=== PATIENT | female | born 1960 | race Two or more races ===

== ENCOUNTER 2019-11-15 13:58 | Outpatient (REF) | payer MEDICAID, SELFPAY ==
--- NOTE | 2019-11-15 15:57 | MHC.AU.P13 ---
Adult Audiological Evaluation Date of Visit: 11/15/19 Reason for Appointment: History of mixed hearing loss. Patient arrives today to determine if there has been a change in hearing. Previous Hearing Test Results: Tested on 04/10/2018 at this clinic- Profound rising to moderate mixed hearing loss bilaterally Ear History: Previous Ear Surgery: Left Ear History of Occupational Noise Exposure: No Medical History: Medical History: High Blood Pressure Thyroid Disease Hearing Instrument History- Right Ear: Credentials Specialist: Lumi [place] Model: Mobiliz8-Trunk Archive-Pandabus Serial Number: [id number] Hearing Instrument History- Left Ear: Credentials Specialist: ReSound Model: Mobiliz8-Trunk Archive-Pandabus Serial Number: [id number] Otoscopy: Right Ear: Dull tympanic membrane Left Ear: Dull tympanic membrane Tympanometry: Right Ear: Normal Middle Ear System (Type A) Left Ear: Hypercompliant Middle Ear System (Type Ad) Hearing Evaluation: Transducer(s) Used: Insert Earphones Method: Conventional Audiometry Stimuli Used: Pure Tones Right Ear: Description of Hearing: Severe rising to moderately-severe mixed hearing loss. Left Ear: Description of Hearing: Severe rising to moderate mixed hearing loss. Speech Recognition Threshold (SRT): Method Used: Monitored Live Voice Stimuli Used: Spondee Words Right Ear: 65 dBHL Left Ear: 70 dBHL Word Discrimination: Method: Monitored Live Voice Word Lists Used: NU-6 Right Ear: 80% at 85 dBHL Left Ear: 80% at 90 dBHL Most Comfortable Level (MCL): Right Ear: 85 dBHL Left Ear: 90 dBHL Comparison: Compared to most recent evaluation: Low-mid frequency thresholds have improved slightly. High frequency thresholds have decreased slightly. Recommendations: Recommendations: Audiological re-evaluation in one year. Patient had trialled 2 types of hearing aids at the end of last year/beginning of this year, which were both returned. Trials were unable to continue due to COVID restrictions at the time. Patient is interested in resuming her search for new hearing aids. Options were discussed and impressions were taken. A pair of [employer]on[employer] M50-NW O were ordered. Patient will be contacted to schedule a hearing aid fitting when all materials have arrived. Diagnosis: Primary Diagnosis: H90.6 Mixed Hearing Loss, Bilateral Secondary Diagnosis: N/A Services Performed: Services Performed: Comprehensive Audiological Evaluation (CPT 11899) Tympanometry (CPT 35710) Signature: Student/Clinical Fellow: No I have reviewed/agreed with student/fellow documentation: N/A Provider: Theresa Gutierrez, CCC-A
== END 2019-11-15 13:59 | disposition home or self-care (01) ==
LOC: HO.SH 13:58
PROVIDERS: Visit Provider Internal Medicine
DX: H91.90 Unspecified hearing loss, unspecified ear (principal)
CPT/HCPCS: 92557; 92567

== ENCOUNTER 2019-12-06 14:57 | Outpatient (REF) | payer MEDICAID, SELFPAY | END 2019-12-06 14:58 | disposition home or self-care (01) | LOC: HO.HAP 14:57 | PROVIDERS: PCP Internal Medicine; Referring Provider Internal Medicine; Visit Provider Internal Medicine | DX: Z13.89 Encounter for screening for other disorder (principal) | CPT/HCPCS: 92700 ==

== ENCOUNTER 2019-12-23 11:54 | Outpatient (REF) | payer MEDICAID, SELFPAY | END 2019-12-23 11:55 | disposition home or self-care (01) | LOC: HO.HAP 11:54 | PROVIDERS: PCP Internal Medicine; Referring Provider Internal Medicine; Visit Provider Internal Medicine | DX: Z46.1 Encounter for fitting and adjustment of hearing aid (principal) | CPT/HCPCS: V5011; V5020; V5160; V5260; V5266 ==

== ENCOUNTER 2020-01-13 12:36 | Outpatient (REF) | payer MEDICAID, SELFPAY | END 2020-01-13 12:37 | disposition home or self-care (01) | LOC: HO.HAP 12:36 | PROVIDERS: PCP Internal Medicine; Referring Provider Internal Medicine; Visit Provider Internal Medicine | DX: Z13.89 Encounter for screening for other disorder (principal) | CPT/HCPCS: 92700 ==

== ENCOUNTER 2020-02-11 11:19 | Outpatient (REF) | payer MEDICAID, SELFPAY | END 2020-02-11 11:20 | disposition home or self-care (01) | LOC: HO.HAP 11:19 | PROVIDERS: Visit Provider Internal Medicine | DX: Z13.89 Encounter for screening for other disorder (principal) ==

== ENCOUNTER 2020-02-18 12:49 | Outpatient (REF) | payer MEDICAID, SELFPAY | END 2020-02-18 12:50 | disposition home or self-care (01) | LOC: HO.HAP 12:49 | PROVIDERS: Visit Provider Internal Medicine | DX: Z13.89 Encounter for screening for other disorder (principal) ==

== ENCOUNTER 2020-03-04 15:20 | Outpatient (REF) | payer MEDICAID, SELFPAY | END 2020-03-04 15:21 | disposition home or self-care (01) | LOC: HO.HAP 15:20 | PROVIDERS: Visit Provider Internal Medicine | DX: Z13.89 Encounter for screening for other disorder (principal) ==

== ENCOUNTER 2020-03-27 10:58 | Outpatient (REF) | payer SELFPAY | END 2020-03-27 10:59 | disposition home or self-care (01) | LOC: HO.HAP 10:58 | PROVIDERS: Visit Provider Internal Medicine | DX: Z13.89 Encounter for screening for other disorder (principal) ==

== ENCOUNTER 2020-04-23 09:54 | Outpatient (REF) | payer MEDICAID, SELFPAY | END 2020-04-23 09:55 | disposition home or self-care (01) | LOC: HO.HAP 09:54 | PROVIDERS: Visit Provider Internal Medicine | DX: Z13.89 Encounter for screening for other disorder (principal) ==

== ENCOUNTER 2020-06-30 13:00 | Outpatient (REF) | payer MEDICAID, SELFPAY ==
--- NOTE | 2020-06-30 13:53 | MHC.AU.P13 ---
Hearing Instrument Problem Date of Visit: 06/30/20 Right Ear: Natural Gas Plant Technician: Phonak Model: VIRTO M50-10 NW 0 Serial Number: [id number] Repair Warranty: 01/13/2023 Loss and Damage Warranty: 01/13/2023 Battery Size: 10 Color: [place] Type of Wax Guard: Cerustop Dispensed By: [facility] Date of Fittin12/23/2019 Left Ear: Natural Gas Plant Technician: Phonak Model: VIRTO M50-10 NW 0 Serial Number: [id number] Repair Warranty: 01/13/2023 Loss and Damage Warranty: 01/13/2023 Battery Size: 10 Color: [place] Type of Wax Guard: Cerustop Dispensed By: [facility] Date of Fittin12/23/2019 Follow-Up Summary: Patient brought in right hearing aid with broken battery door and would like volume turned down. Put on new battery door, changed wax guard, and turned down one (3dB) step. Patient was dispensed 42 batteries. Patient will call if any further problems. Recommendations: Recommendations: Hearing instrument follow-up or maintenance as needed. Signature: Provider: VERÓNICA Avila-
== END 2020-06-30 13:01 | disposition home or self-care (01) ==
LOC: HO.HAP 13:00
PROVIDERS: Visit Provider Internal Medicine
DX: Z46.1 Encounter for fitting and adjustment of hearing aid (principal)
CPT/HCPCS: V5266

== ENCOUNTER 2020-12-01 10:58 | Outpatient (REF) | payer MEDICAID, SELFPAY | END 2020-12-01 10:59 | disposition home or self-care (01) | LOC: HO.HAP 10:58 | PROVIDERS: Visit Provider Internal Medicine | DX: Z46.1 Encounter for fitting and adjustment of hearing aid (principal); H90.6 Mixed conductive and sensorineural hearing loss, bilateral | CPT/HCPCS: 92593; V5266 ==

== ENCOUNTER 2021-02-10 09:44 | Outpatient (REF) | payer MEDICAID, SELFPAY ==
--- NOTE | 2021-02-10 10:43 | MHC.AU.FUR ---
Hearing Instrument Follow-Up Date of Visit: 02/10/21 Building Construction Teacher Used: Right Ear: Waiter/Waitress First Class: Phonak Model: [employer] M50-10 NW 0 Serial Number: [id number] Repair Warranty: 01/13/2023 Loss and Damage Warranty: 01/13/2023 Battery Size: 10 Type of Wax Guard: Cerustop Dispensed By: [facility] Date of Fittin12/23/2019 Follow-Up Summary: Patient's brought in the right hearing aid today with the battery door broken. New battery door was placed, instrument tested and visual and biologic check were all good. Will call to apple picking supervisor aid. Recommendations: Recommendations (Other): Use caution when opening battery door; inserting battery. Diagnosis Code(s): Primary Diagnosis: H90.6 Mixed Hearing Loss, Bilateral Services Performed: PICKETT Non-Quantity Charges: HACHECKM (MH>1 yr or new to us) Face to Face appointment Signature: Provider: Lexx Lynne, FAAA
== END 2021-02-10 09:45 | disposition home or self-care (01) ==
LOC: HO.HAP 09:44
PROVIDERS: Visit Provider Internal Medicine
DX: Z46.1 Encounter for fitting and adjustment of hearing aid (principal); H90.6 Mixed conductive and sensorineural hearing loss, bilateral
CPT/HCPCS: 92592; 99499

== ENCOUNTER 2021-04-08 10:34 | Outpatient (REF) | payer MEDICAID, SELFPAY ==
--- NOTE | 2021-04-08 15:30 | MHC.AU.AHA ---
Adult Audiological Evaluation Date of Visit: 04/08/21 Reason for Appointment: Audiological evaluation to monitor the status of Ms. Guillen's hearing loss. She has a known bilateral, mixed hearing loss and uses hearing aids binaurally. She has a history of right stapes surgery. She has deferred further surgery on her ears. She notes that hearing in the left ear seems to have decreased a bit and she feels she needs an adjustment to her hearing aids. She denies any changes to her medical history. Previous Hearing Test Results: [facility] [place], [place]/2019- Severe rising to moderately-severe mixed hearing loss bilaterally. Ear History: Previous Ear Surgery: Right ear stapedectomy History of occupational noise exposure?: No Medical History: Medical History: High Blood Pressure, Thyroid Disease Hearing Instrument History- Right Ear: Retort Furnace Helper: Phonak Model: FeverO M50-10 NW 0 Serial Number: [id number] Battery Size: 10 Repair Warranty: 01/13/2023 Loss and Damage Warranty: 01/13/2023 Dispensed By: [facility] Date of Fittin12/23/2019 Hearing Instrument History- Left Ear: Retort Furnace Helper: Phonak Model: FeverO M50-10 NW 0 Serial Number: [id number] Battery Size: 10 Warranty: 01/13/2023 Loss and Damage Warranty: 01/13/2023 Dispensed By: [facility] Date of Fittin12/23/2019 Otoscopy: Right Ear: Perforation in lower portion of TM. Clear canal. Left Ear: Some redness and retraction of TM. Clear canal. Tympanometry: Tympanometry performed due to: Right Ear: Non-compliant Middle Ear System (Type B), large ECV consistent with TM perforation Left Ear: Hypercompliant Middle Ear System (Type Ad), Double-Peaked Tympanogram Hearing Evaluation: Transducer(s) Used: Insert Earphones, Bone Conduction Method: Conventional Audiometry Stimuli Used: Pure Tones Right Ear: Description of Hearing: Severe rising to moderate mixed hearing loss from 250-8000 Hz. Left Ear: Description of Hearing: Severe mixed hearing loss 250-500 Hz, sloping to a profound mixed hearing loss at 1000 Hz, and rising to a severe to moderate mixed hearing loss 4637-7869 Hz. Speech Recognition Threshold (SRT): Method Used: Monitored Live Voice Stimuli Used: Spondee Words Right Ear: 75 dBHL Left Ear: 75 dBHL Word Discrimination: Method: Recorded Lists Word Lists Used: NU-6 Right Ear: 80% at 95 dBHL Left Ear: 72% at 95 dBHL Comparison: Compared to most recent evaluation: 25 dBHL decrease in hearing at 1000 Hz in the left ear. 20 dBHL improvement in hearing at 8000 Hz in the right ear. All other thresholds remain stable. Recommendations: Audiological re-evaluation in one year. Hearing aid maintenance performed today. Hearing aid(s) reprogrammed with updated test results. Diagnosis: Primary Diagnosis: H90.6 Mixed Hearing Loss, Bilateral Secondary Diagnosis: H69.93 Unspecified Eustachian Tube Dysfunction, Bilateral Services Performed: Comprehensive Audiological Evaluation (CPT 52261) Tympanometry (CPT 53379) Signature: Provider: Theresa Jordan, CCC-A
== END 2021-04-08 10:35 | disposition home or self-care (01) ==
LOC: HO.SH 10:34
PROVIDERS: Visit Provider Internal Medicine
DX: Z01.118 Encounter for examination of ears and hearing with other abnormal findings (principal); H90.6 Mixed conductive and sensorineural hearing loss, bilateral; H69.93 Unspecified Eustachian tube disorder, bilateral
CPT/HCPCS: 92557; 92567; 92593

== ENCOUNTER 2021-10-28 14:55 | Outpatient (REF) | payer MEDICAID, SELFPAY | END 2021-10-28 14:56 | disposition home or self-care (01) | LOC: HO.HAP 14:55 | PROVIDERS: Visit Provider Internal Medicine | DX: Z46.1 Encounter for fitting and adjustment of hearing aid (principal); H69.93 Unspecified Eustachian tube disorder, bilateral | CPT/HCPCS: V5266 ==

== ENCOUNTER 2021-11-01 15:34 | Outpatient (REF) | payer MEDICAID, SELFPAY ==
--- NOTE | ~2021-11-01 | XR_ITS ---
EXAMINATION: XR CHEST CLINICAL INFORMATION: Shortness of breath. COMPARISON: Chest radiograph 01/10/2017 TECHNIQUE: 2 views of the chest were obtained. FINDINGS: There is mild coarsening bronchiolar markings without lobar or segmental airspace consolidation, hyperinflation, or groundglass opacity. There is no pleural reaction or effusion. The vascularity is normal. The costophrenic sulci are clear. The hilar and mediastinal contours and bony structures are unremarkable. XR/XR chest 2V IMPRESSION: -Mild coarsening bronchiolar markings. -No hyperinflation, infiltrate, or effusion.
== END 2021-11-01 15:35 | disposition home or self-care (01) ==
LOC: HO.XRAY 15:34
PROVIDERS: PCP Internal Medicine; Visit Provider Internal Medicine
DX: R06.02 Shortness of breath (principal)
CPT/HCPCS: 71046

== ENCOUNTER 2021-11-16 10:08 | Outpatient (REF) | payer MEDICAID, SELFPAY ==
[2021-11-16 10:24] LABS: MANUAL DIFF FLAG NO
[2021-11-16 11:39] LABS: Basophils Absolute Auto 0.1 X10*3/uL (0.0-0.2); Basophils Percent Auto 0.8 % (0-2); Eosinophils Absolute Auto 0.7 X10*3/uL (0.0-0.4); Eosinophils Percent Auto 7.3 % (0-4); Hematocrit 42.3 % (37.0-47.0); Hemoglobin 13.5 g/dl (12.0-16.0); Imm Gran Abs Auto 0.03 X10*3/uL (0.00-0.03); Imm Gran Pct Auto 0.3 % (0.0-0.4); Lymphocytes Absolute Auto 3.3 X10*3/uL (1.2-4.9); Lymphocytes Percent Auto 33.6 % (20-40); Mean Corpuscular HGB Conc 31.9 g/dl (31.0-35.0); Mean Corpuscular Hemoglobin 27.3 pg (27.0-33.0); Mean Corpuscular Volume 85.6 fL (80.0-98.0); Mean Platelet Volume 9.3 fL (9.4-12.3); Monocytes Absolute Auto 0.8 X10*3/uL (0.1-1.2); Monocytes Percent Auto 8.6 % (2-11); Neutrophils Absolute Auto 4.8 x10*3/uL (2.0-8.3); Neutrophils Percent Auto 49.4 % (45-73); Platelet Count 331 X10*3/uL (160-400); Red Blood Count 4.94 X10*6/uL (4.20-5.50); Red Cell Distribution Width 14.2 % (11.0-16.0); White Blood Count 9.8 X10*3/uL (4.8-10.8)
[2021-11-16 12:26] LABS: Thyroid Stimulating Hormone 1.05 uIU/mL (0.32-4.0)
[2021-11-16 12:27] LABS: Alanine Aminotransferase 19 U/L (0-31); Alkaline Phosphatase 92 U/L (39-117); Anion Gap 17 (12-20); Aspartate Amino Transferase 18 U/L (5-31); Bilirubin Total 0.4 mg/dL (0.0-1.0); Blood Urea Nitrogen 20 mg/dL (9-16); Carbon Dioxide 23 mmol/L (22-29); Chloride 106 mmol/L (96-108); Cholesterol 204 mg/dL; Estimated Glomerular Filt Rate > 60; Glucose Random 97 mg/dL (60-115); HDL Cholesterol 41 mg/dL; LDL Cholesterol Calculated 136 mg/dl; Potassium 4.3 mmol/L (3.3-5.1); Sodium 142 mmol/L (135-145); Total Protein 6.9 g/dL (6.5-8.0); Triglycerides 139 mg/dL
== END 2021-11-16 10:09 | disposition home or self-care (01) ==
LOC: HO.LAB 10:08
PROVIDERS: PCP Internal Medicine; Visit Provider Internal Medicine
DX: E03.9 Hypothyroidism, unspecified (principal); I10 Essential (primary) hypertension; J45.20 Mild intermittent asthma, uncomplicated
CPT/HCPCS: 36415; 80053; 80061; 84443; 85025

== ENCOUNTER 2021-11-30 10:49 | Outpatient (REF) | payer MEDICAID, SELFPAY | END 2021-11-30 10:50 | disposition home or self-care (01) | LOC: HO.HAP 10:49 | PROVIDERS: Visit Provider Internal Medicine | DX: Z13.89 Encounter for screening for other disorder (principal) ==

== ENCOUNTER 2021-12-16 15:15 | Outpatient (REF) | payer MEDICAID, SELFPAY ==
--- NOTE | 2021-12-16 16:12 | MHC.AU.HFU ---
Hearing Instrument Follow-Up- Binaural Date of Visit: 12/16/21 Right Ear: Phonak Virto M50-10 NW O SN: [id number] Color: [place] Repair Warranty: 03/14/2023 Loss and Damage Warranty: Used 12/13/21 Service Plan: 12/22/2020 Battery Size: 10 Type of Wax Guard: Cerustop Dispensed By: [facility] Date of Fittin12/23/2019 Left Ear: Phonak Virto M50-10 NW O SN: [id number] Color: [place] Repair Warranty: 03/14/2023 Loss and Damage Warranty: Used 12/13/21 Service Plan: 12/22/2020 Battery Size: 10 Type of Wax Guard: Cerustop Dispensed By: [facility] Date of Fittin12/23/2019 Follow-Up Summary: Po returned to chicken picker her lost and damage replacement hearing aids. Initially, she reported a noise/beeping in the replacement hearing aids. Performed feedback client operations manager and the issue reportedly resolved. Increased overall volume of left hearing aid slightly at oP's request. Briefly discussed that hearing aids are almost maxed out and for more power would need a different style of hearing aid. Po prefers the smaller hearing aid. She also has a pair of old ReSound CICs that she reportedly received from [facility]. Recommendations: Hearing instrument maintenance in 6 months, or sooner if needed. Please contact our clinic with any questions or concerns. Diagnosis Code(s): Primary Diagnosis: H90.6 Mixed Hearing Loss, Bilateral Secondary Diagnosis: H69.93 Unspecified Eustachian Tube Dysfunction, Bilateral Signature: Provider: Katheryn Leon, [facility]
== END 2021-12-16 15:16 | disposition home or self-care (01) ==
LOC: HO.HAP 15:15
PROVIDERS: Visit Provider Internal Medicine
DX: Z13.89 Encounter for screening for other disorder (principal)

== ENCOUNTER 2021-12-29 12:09 | Outpatient (REF) | payer MEDICAID, SELFPAY ==
[2021-12-29 13:07] LABS: COVID-19 Test Negative (Negative); IDNOW Serial# 55D5AD1C
== END 2021-12-29 12:10 | disposition home or self-care (01) ==
LOC: HO.LAB 12:09
PROVIDERS: Visit Provider Internal Medicine
DX: Z20.822 Contact with and (suspected) exposure to COVID-19 (principal)
CPT/HCPCS: 87635; C9803

== ENCOUNTER 2022-01-03 14:14 | Outpatient (REF) | payer MEDICAID, SELFPAY ==
--- NOTE | 2022-01-03 15:31 | MHC.AU.HFU ---
Hearing Instrument Follow-Up- Binaural Date of Visit: 01/03/22 Right Ear: Phonak Virto M50-10 NW O SN: [id number] Color: [place] Repair Warranty: 03/14/2023 Loss and Damage Warranty: USED 12/13/21 Service Plan: 12/22/2020 Battery Size: 10 Type of Wax Guard: Cerustop Dispensed By: [facility] Date of Fittin12/23/2019 Left Ear: Phonak Virto M50-10 NW O SN: [id number] Color: [place] Repair Warranty: 03/14/2023 Loss and Damage Warranty: USED 12/13/21 Service Plan: 12/22/2020 Battery Size: 10 Type of Wax Guard: Cerustop Dispensed By: [facility] Date of Fittin12/23/2019 Follow-Up Summary: Po reported that she needs the volume increased on both hearing aids. Increased the overall volume, bilaterally. Po noticed improvement in-office. Reexplained that hearing aids are almost maxed out and the trade off between audibility and a smaller hearing aid. Po reported that she has tried larger hearing aids in the past but had issues with discomfort. Data logging showed <1 hour of use per day. Encouraged more consistent use. Recommendations: Hearing instrument maintenance in 6 months, or sooner if needed. Patient will call if problems persist. Diagnosis Code(s):Primary Diagnosis: H90.6 Mixed Hearing Loss, Bilateral Secondary Diagnosis: H69.93 Unspecified Eustachian Tube Dysfunction, Bilateral Signature: Provider: Katheryn Leon, [facility]
== END 2022-01-03 14:15 | disposition home or self-care (01) ==
LOC: HO.HAP 14:14
PROVIDERS: Visit Provider Internal Medicine
DX: Z46.1 Encounter for fitting and adjustment of hearing aid (principal); H90.6 Mixed conductive and sensorineural hearing loss, bilateral
CPT/HCPCS: 92593

== ENCOUNTER 2022-01-11 11:32 | Outpatient (REF) | payer MEDICAID, SELFPAY ==
--- NOTE | 2022-01-12 09:16 | MHC.AU.HFU ---
Hearing Instrument Follow-Up- Binaural Date of Visit: 01/11/22 Right Ear: Daryl Sams M50-10 NW O SN: [id number] Color: [place] Repair Warranty: 03/14/2023 Loss and Damage Warranty: USED 12/13/21 Service Plan: 12/22/2020 Battery Size: 10 Type of Wax Guard: Cerustop Dispensed By: [facility] Date of Fittin12/23/2019 Left Ear: Daryl Iqbalo M50-10 NW O SN: [id number] Color: [place] Repair Warranty: 03/14/2023 Loss and Damage Warranty: USED 12/13/21 Service Plan: 12/22/2020 Battery Size: 10 Type of Wax Guard: Cerustop Dispensed By: [facility] Date of Fittin12/23/2019 Follow-Up Summary: Po reported her hearing aids still sound too soft. She wanted the settings she had prior to losing her hearing aids. Restored the settings from March 2021; however, there was excessive feedback. Performed feedback manager of selection and assessment, which decreased the gain significantly. Reinserted hearing aids and performed feedback manager of selection and assessment again with no improvement multiple times. Hearing aid settings are currently maxed out due to feedback curve. The hearing aid settings from March cannot be restored due to apparent changes in feedback pathway. Possible that Daryl used original impressions from initial hearing aid order versus the impressions for remakes from February 2020. Discussed possible remakes for tighter fit. Po is leaving for [facility] at the beginning of January. When she returns, if there are still issues with sound quality due to affects of the feedback curves, she will schedule an appointment for impressions. Recommendations: Po will schedule an appointment when she returns from [facility] for new impressions for remakes, if necessary. Diagnosis Code(s): Primary Diagnosis: H90.6 Mixed Hearing Loss, Bilateral; Secondary Diagnosis: H69.93 Unspecified Eustachian Tube Dysfunction, Bilateral Signature: Provider: Katheryn Leon, [facility]
== END 2022-01-11 11:33 | disposition home or self-care (01) ==
LOC: HO.HAP 11:32
PROVIDERS: Visit Provider Internal Medicine
DX: Z13.89 Encounter for screening for other disorder (principal)

== ENCOUNTER 2022-04-22 10:41 | Outpatient (REF) | payer MEDICAID, SELFPAY ==
[2022-04-22 13:11] LABS: Alanine Aminotransferase 18 U/L (0-31); Albumin Level 4.1 g/dL (3.5-5.0); Alkaline Phosphatase 85 U/L (39-117); Anion Gap 14 (12-20); Aspartate Amino Transferase 20 U/L (5-31); Bilirubin Total 0.5 mg/dL (0.0-1.0); Blood Urea Nitrogen 16 mg/dL (9-16); Calcium 9.8 mg/dL (8.4-10.2); Carbon Dioxide 26 mmol/L (22-29); Chloride 105 mmol/L (96-108); Cholesterol 127 mg/dL; Estimated Glomerular Filt Rate > 60; Glucose Random 95 mg/dL (60-115); HDL Cholesterol 42 mg/dL; LDL Cholesterol Calculated 71 mg/dl; Potassium 4.2 mmol/L (3.3-5.1); Sodium 141 mmol/L (135-145); Thyroid Stimulating Hormone 0.78 uIU/mL (0.32-4.0); Total Protein 6.7 g/dL (6.5-8.0); Triglycerides 71 mg/dL
== END 2022-04-22 10:42 | disposition home or self-care (01) ==
LOC: HO.LAB 10:41
PROVIDERS: PCP Internal Medicine; Visit Provider Internal Medicine
DX: Z00.00 Encounter for general adult medical examination without abnormal findings (principal); I10 Essential (primary) hypertension; R21 Rash and other nonspecific skin eruption; E78.00 Pure hypercholesterolemia, unspecified; E03.9 Hypothyroidism, unspecified
CPT/HCPCS: 36415; 80053; 80061; 84443

== ENCOUNTER 2022-05-03 15:24 | Outpatient (REF) | payer MEDICAID, SELFPAY ==
--- NOTE | 2022-05-04 10:00 | MHC.AU.HA3 ---
Hearing Instrument Follow-Up- Binaural Date of Visit: 05/03/22 Right Ear: Make, Model, Color, Serial Number: Phonak Faridao M50-10 NW O SN: [id number] Color: [place] Grocery Specialist Repair Warranty: 03/14/2023 Grocery Specialist Loss and Damage Warranty: USED 12/13/21 [facility] Service Plan: 12/22/2020 Battery Size: 10 Type of Wax Guard: Cerustop Dispensed By: [facility] Date of Fittin12/23/2019 Left Ear: Make, Model, Color, Serial Number: Phonak Faridao M50-10 NW O SN: [id number] Color: [place] Grocery Specialist Repair Warranty: 03/14/2023 Grocery Specialist Loss and Damage Warranty: USED 12/13/21 [facility] Service Plan: 12/22/2020 Battery Size: 10 Type of Wax Guard: Cerustop Dispensed By: [facility] Date of Fittin12/23/2019 Follow-Up Summary: Po returned to have her hearing aids re-cased with new impressions as discussed at the last appointment. Impressions taken, bilaterally, without incident. Sent impressions and both hearing aids to [facility] to be re-cased due to significant changes in feedback curves after hearing aids were replaced through the loss and damage warranty. Recommendations: Patient will be contacted when materials have arrived. Recommendations (Other): When hearing aids return, need to restore settings from March 2021 per Po's preference and perform feedback outlet manager. Diagnosis Code(s): Primary Diagnosis: H90.6 Mixed Hearing Loss, Bilateral Signature: Provider: Katheryn Leon, [facility]
== END 2022-05-03 15:25 | disposition home or self-care (01) ==
LOC: HO.HAP 15:24
PROVIDERS: PCP Internal Medicine; Visit Provider Internal Medicine
DX: Z13.89 Encounter for screening for other disorder (principal)

== ENCOUNTER 2022-05-03 15:52 | Outpatient (REF) | payer MEDICAID, SELFPAY | END 2022-05-03 15:53 | disposition home or self-care (01) | LOC: HO.HAP 15:52 | PROVIDERS: Visit Provider Internal Medicine | DX: Z46.1 Encounter for fitting and adjustment of hearing aid (principal); H90.3 Sensorineural hearing loss, bilateral | CPT/HCPCS: V5266 ==

== ENCOUNTER 2022-05-20 11:11 | Outpatient (REF) | payer MEDICAID, SELFPAY | END 2022-05-20 11:12 | disposition home or self-care (01) | LOC: HO.HAP 11:11 | PROVIDERS: Visit Provider Internal Medicine | DX: Z13.89 Encounter for screening for other disorder (principal) ==

== ENCOUNTER 2022-06-01 11:10 | Outpatient (REF) | payer MEDICAID, SELFPAY ==
--- NOTE | 2022-06-01 11:56 | MHC.AU.HA3 ---
Hearing Instrument Follow-Up- Binaural Date of Visit: 06/01/22 Right Ear: Make, Model, Color, Serial Number: Daryl Sams M50-10 NW O SN: [id number] Color: [place] Sound Assistant Repair Warranty: 03/14/2023 Sound Assistant Loss and Damage Warranty: USED 12/13/21 [facility] Service Plan: 12/22/2020 Battery Size: 10 Type of Wax Guard: Cerustop Dispensed By: [facility] Date of Fittin12/23/2019 Left Ear: Make, Model, Color, Serial Number: Daryl Sams M50-10 NW O SN: [id number] Color: [place] Sound Assistant Repair Warranty: 03/14/2023 Sound Assistant Loss and Damage Warranty: USED 12/13/21 [facility] Service Plan: 12/22/2020 Battery Size: 10 Type of Wax Guard: Cerustop Dispensed By: [facility] Date of Fittin12/23/2019 Follow-Up Summary: The patient walked in today asking to be seen for a hearing aid adjustment. I was able to see the patient for programming. She would like the left hearing aid volume increased and the right hearing aid volume increased only slightly. Connected hearing aids to target via cables and increased left overall gain by 3 clicks and right overall gain by 1 click. She seemed happy with this adjustment. I next spent time discussing the patient's hearing loss. Recommending updated audiogram as previous audiogram is dated 04/08/21. I explained that the patient's current [facility] hearing aids are at their maximum gain and are not appropriate for her degree of hearing loss. I explained that her hearing loss needs will be better met with power HS/FS ITE or BTE style hearing aids. She is very concerned about cosmetic appearance of the hearing aids. I explained that her hearing loss needs and appropriate gain must come first. I also explained that these other style hearing aids will give her the ability to use a volume control (either on the aids themselves or via [employer] susannah). This should be further discussed at her next hearing evaluation. For now she is satisfied with the current hearing aid settings and understands there is not much more gain we can provide via programming adjustments. She will request an order for audiogram from her PCP. Diagnosis Code(s): Primary Diagnosis: H90.6 Mixed Hearing Loss, Bilateral Signature: Provider: Theresa Li, CCC-A
== END 2022-06-01 11:11 | disposition home or self-care (01) ==
LOC: HO.HAP 11:10
PROVIDERS: Visit Provider Internal Medicine
DX: Z13.89 Encounter for screening for other disorder (principal)

== ENCOUNTER 2022-06-01 12:03 | Outpatient (REF) | payer MEDICAID, SELFPAY ==
[2022-06-01 12:27] LABS: MANUAL DIFF FLAG NO
[2022-06-01 13:04] LABS: Basophils Absolute Auto 0.1 X10*3/uL (0.0-0.2); Basophils Percent Auto 1.1 % (0-2); Eosinophils Absolute Auto 0.6 X10*3/uL (0.0-0.4); Eosinophils Percent Auto 6.3 % (0-4); Hematocrit 41.4 % (37.0-47.0); Hemoglobin 13.2 g/dl (12.0-16.0); Imm Gran Abs Auto 0.02 X10*3/uL (0.00-0.03); Imm Gran Pct Auto 0.2 % (0.0-0.4); Lymphocytes Percent Auto 43.4 % (20-40); Mean Corpuscular HGB Conc 31.9 g/dl (31.0-35.0); Mean Corpuscular Hemoglobin 27.2 pg (27.0-33.0); Mean Corpuscular Volume 85.2 fL (80.0-98.0); Mean Platelet Volume 10.3 fL (9.4-12.3); Monocytes Absolute Auto 0.5 X10*3/uL (0.1-1.2); Monocytes Percent Auto 5.8 % (2-11); Neutrophils Percent Auto 43.2 % (45-73); Platelet Count 339 X10*3/uL (160-400); Red Blood Count 4.86 X10*6/uL (4.20-5.50); Red Cell Distribution Width 13.2 % (11.0-16.0); White Blood Count 9.2 X10*3/uL (4.8-10.8)
[2022-06-01 13:39] LABS: Alanine Aminotransferase 23 U/L (0-31); Albumin Level 4.2 g/dL (3.5-5.0); Alkaline Phosphatase 83 U/L (39-117); Anion Gap 10 (12-20); Aspartate Amino Transferase 19 U/L (5-31); Bilirubin Total 0.4 mg/dL (0.0-1.0); Blood Urea Nitrogen 15 mg/dL (9-16); Calcium 9.9 mg/dL (8.4-10.2); Carbon Dioxide 29 mmol/L (22-29); Chloride 105 mmol/L (96-108); Cholesterol 148 mg/dL; Estimated Glomerular Filt Rate > 60; Glucose Random 85 mg/dL (60-115); HDL Cholesterol 43 mg/dL; LDL Cholesterol Calculated 86 mg/dl; Potassium 4.2 mmol/L (3.3-5.1); Sodium 140 mmol/L (135-145); Total Protein 6.8 g/dL (6.5-8.0); Triglycerides 95 mg/dL
[2022-06-01 13:53] LABS: Thyroid Stimulating Hormone 0.53 uIU/mL (0.32-4.0)
[2022-06-03 16:49] LABS: TS Negative Control Passed; TS Panel A 8; TS Panel B 7; TS Positive Control Passed; TSpotTB Positive (Negative)
== END 2022-06-01 12:04 | disposition home or self-care (01) ==
LOC: HO.LAB 12:03
PROVIDERS: PCP Internal Medicine; Visit Provider Internal Medicine
DX: E03.8 Other specified hypothyroidism (principal); E78.00 Pure hypercholesterolemia, unspecified; I10 Essential (primary) hypertension; M79.10 Myalgia, unspecified site
CPT/HCPCS: 36415; 80053; 80061; 84443; 85025; 86481

== ENCOUNTER 2022-06-07 14:48 | Outpatient (REF) | payer MEDICAID, SELFPAY ==
--- NOTE | ~2022-06-07 | XR_ITS ---
EXAMINATION: XR CHEST CLINICAL INFORMATION: + T spot test. COMPARISON: Chest radiographs 11/01/2021, 01/10/2017 TECHNIQUE: 2 views of the chest were obtained. FINDINGS: There is mild coarsening of the bronchovascular markings similar to prior studies. Heart is within limits of normal size. The hilar and mediastinal contours are stable. There is no lobar segmental airspace consolidation or groundglass opacity cavitary lesion or pleural reaction. The costophrenic sulci are clear. No acute bony abnormality. XR/XR chest 2V IMPRESSION: - Mild coarsening bronchovascular markings similar to prior studies. -No acute intrathoracic disease.
[2022-06-09 20:43] LABS: TS Negative Control Passed; TS Panel A 3; TS Panel B 0; TS Positive Control Passed; TSpotTB Negative (Negative)
== END 2022-06-07 14:49 | disposition home or self-care (01) ==
LOC: HO.LAB 14:48
PROVIDERS: PCP Internal Medicine; Visit Provider Internal Medicine
DX: R76.11 Nonspecific reaction to tuberculin skin test without active tuberculosis (principal)
CPT/HCPCS: 36415; 71046; 86481

== ENCOUNTER 2022-08-02 14:38 | Outpatient (REF) | payer MEDICAID, SELFPAY ==
[2022-08-04 15:28] LABS: TS Negative Control Passed; TS Panel A 4; TS Panel B 15; TS Positive Control Passed; TSpotTB Positive (Negative)
== END 2022-08-02 14:39 | disposition home or self-care (01) ==
LOC: HO.LAB 14:38
PROVIDERS: PCP Internal Medicine; Visit Provider Internal Medicine
DX: Z11.1 Encounter for screening for respiratory tuberculosis (principal)
CPT/HCPCS: 36415; 86481

== ENCOUNTER 2023-01-17 10:27 | Outpatient (REF) | payer OTHER, SELFPAY ==
[2023-01-17 10:47] LABS: MANUAL DIFF FLAG NO
[2023-01-17 11:34] LABS: Basophils Absolute Auto 0.1 X10*3/uL (0.0-0.2); Basophils Percent Auto 0.8 % (0-2); Eosinophils Absolute Auto 0.5 X10*3/uL (0.0-0.4); Eosinophils Percent Auto 5.3 % (0-4); Hematocrit 42.1 % (37.0-47.0); Hemoglobin 13.3 g/dl (12.0-16.0); Imm Gran Abs Auto 0.06 X10*3/uL (0.00-0.03); Imm Gran Pct Auto 0.7 % (0.0-0.4); Lymphocytes Absolute Auto 3.1 X10*3/uL (1.2-4.9); Mean Corpuscular HGB Conc 31.6 g/dl (31.0-35.0); Mean Corpuscular Hemoglobin 26.9 pg (27.0-33.0); Mean Corpuscular Volume 85.1 fL (80.0-98.0); Mean Platelet Volume 9.7 fL (9.4-12.3); Monocytes Absolute Auto 0.5 X10*3/uL (0.1-1.2); Neutrophils Absolute Auto 4.8 x10*3/uL (2.0-8.3); Neutrophils Percent Auto 53.2 % (45-73); Platelet Count 314 X10*3/uL (160-400); Red Blood Count 4.95 X10*6/uL (4.20-5.50); Red Cell Distribution Width 13.1 % (11.0-16.0)
[2023-01-17 12:50] LABS: Alanine Aminotransferase 18 U/L (0-31); Albumin Level 4.1 g/dL (3.5-5.0); Alkaline Phosphatase 95 U/L (39-117); Anion Gap 12 (12-20); Aspartate Amino Transferase 17 U/L (5-31); Bilirubin Total 0.4 mg/dL (0.0-1.0); Blood Urea Nitrogen 15 mg/dL (9-16); Calcium 9.2 mg/dL (8.4-10.2); Carbon Dioxide 27 mmol/L (22-29); Chloride 108 mmol/L (96-108); Cholesterol 115 mg/dL (<200); Estimated Glomerular Filt Rate > 60; Glucose Random 99 mg/dL (60-115); HDL Cholesterol 40 mg/dL (>40); LDL Cholesterol Calculated 64 mg/dL (<100); Sodium 143 mmol/L (135-145); Thyroid Stimulating Hormone 1.45 uIU/mL (0.32-4.0); Total Protein 7.2 g/dL (6.5-8.0); Triglycerides 58 mg/dL (<150)
== END 2023-01-17 10:28 | disposition home or self-care (01) ==
LOC: HO.LAB 10:27
PROVIDERS: PCP Internal Medicine; Visit Provider Internal Medicine
DX: E03.8 Other specified hypothyroidism (principal); E78.00 Pure hypercholesterolemia, unspecified; I10 Essential (primary) hypertension; M79.10 Myalgia, unspecified site
CPT/HCPCS: 36415; 80053; 80061; 84443; 85025

== ENCOUNTER 2023-05-30 14:18 | Outpatient (REF) | payer OTHER, SELFPAY ==
--- NOTE | ~2023-05-30 | XR_ITS ---
EXAMINATION: XR ANKLE, LEFT CLINICAL INFORMATION: Osteoarthritis. COMPARISON: None available. TECHNIQUE: AP, lateral, and mortise views of the left ankle. FINDINGS: Radiopaque marker placed by technologist to indicate the area of concern as indicated by the patient along the medial aspect of the ankle. Small ossicle overlying the inferior aspect of the medial malleolus could represent an avulsion fracture of indeterminate age. Degenerative change with hypertrophic change along the inferior aspect of the medial malleolus. Diffuse soft tissue swelling most marked at the medial aspect of the ankle. Joint effusion present. Small plantar calcaneal spur. Spurring and calcification along the region of the Achilles tendon insertion into the dorsal aspect of the calcaneus. Bones are diffusely demineralized. Ankle mortise is preserved. XR/XR ankle LT min 3V IMPRESSION: 1. Marked medial soft tissue swelling with joint effusion. Small ossicle overlying the inferior medial malleolus of indeterminate age, possibly representing an avulsion fracture. 2. Spurring along medial malleolus.
== END 2023-05-30 14:19 | disposition home or self-care (01) ==
LOC: HO.XRAY 14:18
PROVIDERS: PCP Internal Medicine; Visit Provider Internal Medicine
DX: M19.072 Primary osteoarthritis, left ankle and foot (principal)
CPT/HCPCS: 73610

== ENCOUNTER 2023-07-04 10:12 | Outpatient (REF) | payer SELFPAY | END 2023-07-04 10:13 | disposition home or self-care (01) | LOC: HO.HAP 10:12 | PROVIDERS: Visit Provider Internal Medicine | DX: Z13.89 Encounter for screening for other disorder (principal) ==

== ENCOUNTER 2023-07-05 13:15 | Outpatient (REF) | payer SELFPAY | END 2023-07-05 13:16 | disposition home or self-care (01) | LOC: HO.HAP 13:15 | PROVIDERS: Visit Provider Internal Medicine | DX: Z46.1 Encounter for fitting and adjustment of hearing aid (principal); H90.6 Mixed conductive and sensorineural hearing loss, bilateral | CPT/HCPCS: 92593 ==

== ENCOUNTER 2023-08-21 12:51 | Outpatient (AMB) | payer OTHER, SELFPAY ==
[2023-08-21 13:10] VITALS: BMI 26.5
--- NOTE | 2023-08-21 13:10 | A.OFFVIS_ITS ---
Vital Signs 08/21/23 13:10 Height 4 ft 11 in Weight 131 lb BMI 26.5 Intake Visit Reasons: New Patient, L leg pain denies injury Intake Note: Po is a 63 yr old female who presents today as a new pt for LT leg pain. Pt reports no injury but it has bothering her since February 2023. She is experiencing a sharp pain and swelling from the LT ankle down to her toes. She is taking Tylenol and Naproxen to manage the pain. Allergies No Known Allergies Allergy (Unverified 08/21/23 13:12) Medication List - Last Reconciled 08/21/23 by Troy Chávez PA-C levothyroxine 75 mcg PO DAILY montelukast 10 mg PO DAILY naproxen 500 mg PO BID rifampin 300 mg PO BID rosuvastatin 5 mg PO DAILY HPI HPI New Patient, L leg pain denies injury: Details: 63-year-old female who presents to the office today for an evaluation of left leg for about 7 months. She states she has a sharp pain and swelling in her left ankle that radiates down to her toes. She has not had any injury in the past. She takes Tylenol and naproxen for her pain with benefits. Review of Systems Const All systems reviewed & are unremarkable except as noted in HPI and below Physical Exam Vital Signs: BMI result Body Mass Index 26.5 Const General: cooperative, healthy appearing, comfortable, no acute distress, well developed and alert Orientation/consciousness: patient oriented x3 HEENT Head: Yes normal to inspection, Yes normocephalic and Yes atraumatic Eyes General: appearance normal, both eyes and all related structures Resp Effort & Inspection: normal respiratory effort and able to speak in complete sentences Cardio Rate: regular rate Peripheral pulses: Peripheral pulses 2+ throughout GI Palpation (GI): Soft to palpation Skin Lesions: no lesions Rashes: no rashes Neuro General: patient oriented x3 Extrem Other: Left ankle: Normal to inspection. She has swelling over the medial aspect of her ankle with mild tenderness. No tenderness over lateral malleolus or posterior aspect of her ankle. She has good ankle ROM with no crepitus or laxity. NVI. Results Reviewed Results Reviewed: XR ankle LT min 3V 05/30/23 IMPRESSION: 1. Marked medial soft tissue swelling with joint effusion. Small ossicle overlying the inferior medial malleolus of indeterminate age, possibly representing an avulsion fracture. 2. Spurring along medial malleolus. Assessment & Plan Assessment & Plan (1) Osteoarthritis of right ankle and foot: Code(s): M19.071 - Primary osteoarthritis, right ankle and foot Category: Medical Plan She was given a lace up ankle brace to help her with support when she is on her feet. She does have a prescription of naproxen that she will take for the next 2 weeks to help with her discomfort. A course of physical therapy was also placed to work on ROM, gentle strengthening and proprioceptive training. If symptoms persist or worsen, patient will contact the office, otherwise follow-up as needed. Orders: Orders PT Evaluation and Treatment Today M19.071 - Primary osteoarthritis, right ankle and foot Patient Instructions: Scribed for Troy Chávez PA-C, by Marko Galvez medical laboratory technician, on 08/21/2023 at 1:15 PM EST.? I, Troy Chávez PA-C, have personally reviewed and agree with the information entered by the scribe. Coding Level of Care Code New Pt Level 3 (07503) Diagnoses Osteoarthritis of right ankle and foot M19.071
== END 2023-08-21 13:57 | disposition home or self-care (01) ==
PROVIDERS: PCP Internal Medicine; Visit Provider Physician Assistant
DX: M19.071 Primary osteoarthritis, right ankle and foot (principal)
CPT/HCPCS: 99203

== ENCOUNTER → 2023-08-21 12:51 | Outpatient (BNVA) | payer OTHER, SELFPAY | PROVIDERS: PCP Internal Medicine; Visit Provider Physician Assistant | DX: M19.071 Primary osteoarthritis, right ankle and foot (principal) | CPT/HCPCS: 99202 ==

== ENCOUNTER 2023-08-23 09:28 | Outpatient (REF) | payer OTHER, SELFPAY ==
[2023-08-23 11:08] LABS: Alanine Aminotransferase 17 U/L (0-31); Albumin Level 4.3 g/dL (3.5-5.0); Alkaline Phosphatase 95 U/L (39-117); Anion Gap 11 (12-20); Aspartate Amino Transferase 16 U/L (5-31); Bilirubin Total 0.5 mg/dL (0.0-1.0); Blood Urea Nitrogen 15 mg/dL (9-16); Calcium 9.6 mg/dL (8.4-10.2); Carbon Dioxide 27 mmol/L (22-29); Chloride 106 mmol/L (96-108); Estimated Glomerular Filt Rate > 60; Glucose Random 116 mg/dL (60-115); Potassium 3.8 mmol/L (3.3-5.1); Sodium 140 mmol/L (135-145); Thyroid Stimulating Hormone 1.38 uIU/mL (0.32-4.0); Total Protein 7.6 g/dL (6.5-8.0)
[2023-08-23 11:19] LABS: Estimated Average Glucose 123 mg/dL; Hemoglobin A1c % 5.9 % (<6.0)
== END 2023-08-23 09:29 | disposition home or self-care (01) ==
LOC: HO.LAB 09:28
PROVIDERS: PCP Internal Medicine; Visit Provider Internal Medicine
DX: E03.9 Hypothyroidism, unspecified (principal); H92.01 Otalgia, right ear; I10 Essential (primary) hypertension; R73.01 Impaired fasting glucose
CPT/HCPCS: 36415; 80053; 83036; 84443

== ENCOUNTER 2023-08-30 09:17 | Day surgery (SDC) | payer OTHER, SELFPAY ==
[2023-08-28 13:19] VITALS: BMI 28.8
[2023-08-30 10:00] VITALS: BMI 28.6
[2023-08-30 10:15] VITALS: BP 134/74; PULSE 64; RESP 16; TEMP 36.7; O2SAT 100
[2023-08-30] MEDS: Lactated Ringers 1,000 ML 100 ML IVCONT (10:27)
--- NOTE | 2023-08-30 10:45 | HO.ANESPROP2 ---
Documented by User: Lauryn Sykes NP 08/29/23 10:21 HPI - Anesthesia Eval Consult details Narrative: 63yo F for Colonoscopy PMFSH Active Problems Active Problems: All Active Problems Osteoarthritis of right ankle and foot (Acute) Past Medical History Medical History Personal history of tuberculosis Thyroid disease Asthma Hyperlipidemia HTN (hypertension) Surgical History Surgical History History of ear surgery Hx of hemorrhoidectomy Hx of hysterectomy History of section H/O colonoscopy Social History Social History Patient Tobacco Use Status: Never used Tobacco Use of substances other than those prescribed or required for medical reasons: No Are you DNR?: No Advance Directives: No Advance Directives Information Provided: Yes Patient : No Meds Allergies Allergy/AdvReac Type Severity Reaction Status Date / Time No Known Allergies Allergy Verified 08/30/23 09:36 Home Medications ?Medication ?Instructions ?Recorded ?Confirmed ?Last Taken ?Type levothyroxine 75 mcg tablet 75 mcg PO DAILY 08/21/23 08/28/23 Unknown History montelukast 10 mg tablet 10 mg PO DAILY 08/21/23 08/28/23 Unknown History naproxen 500 mg tablet 500 mg PO BID PRN Pain 08/21/23 08/30/23 08/26/23 History rifampin 300 mg capsule 300 mg PO BID 08/21/23 08/28/23 Unknown History rosuvastatin 5 mg tablet 5 mg PO DAILY 08/21/23 08/28/23 Unknown History fluticasone 250 mcg-salmeterol 50 2 ea inhalation BID 08/28/23 08/28/23 Unknown History mcg/dose blistr powdr for inhalation (Advair Diskus) losartan 100 1 tab PO DAILY 08/28/23 08/28/23 Unknown History mg-hydrochlorothiazide 25 mg tablet Exam Height,Weight and Vital Signs: Height 4 ft 9 in Weight 60.328 kg Pertinent Lab Results Pertinent Lab Results: Laboratory Tests 01/17/23 08/23/23 10:43 09:52 WBC 9.0 Hgb 13.3 Hct 42.1 Plt Count 314 Sodium 140 Potassium 3.8 Chloride 106 Carbon Dioxide 27 BUN 15 Creatinine 0.67 Assessment and Plan Assessment Anesthesia Assessment: Chart Reviewed Documented by User: Rosie Siegel DO 08/30/23 10:47 PMFSH Past Medical History Medical History Personal history of tuberculosis Thyroid disease Asthma Hyperlipidemia HTN (hypertension) Family History Family history of problems with anesthesia: No Surgical History Surgical History History of ear surgery Hx of hemorrhoidectomy Hx of hysterectomy History of section H/O colonoscopy History of Problems with Anesthesia: No Social History Social History Patient Tobacco Use Status: Never used Tobacco Use of substances other than those prescribed or required for medical reasons: No Are you DNR?: No Advance Directives: No Advance Directives Information Provided: Yes Patient : No Meds Allergies Allergy/AdvReac Type Severity Reaction Status Date / Time No Known Allergies Allergy Verified 08/30/23 09:36 Home Medications ?Medication ?Instructions ?Recorded ?Confirmed ?Last Taken ?Type levothyroxine 75 mcg tablet 75 mcg PO DAILY 08/21/23 08/28/23 Unknown History montelukast 10 mg tablet 10 mg PO DAILY 08/21/23 08/28/23 Unknown History naproxen 500 mg tablet 500 mg PO BID PRN Pain 08/21/23 08/30/23 08/26/23 History rifampin 300 mg capsule 300 mg PO BID 08/21/23 08/28/23 Unknown History rosuvastatin 5 mg tablet 5 mg PO DAILY 08/21/23 08/28/23 Unknown History fluticasone 250 mcg-salmeterol 50 2 ea inhalation BID 08/28/23 08/28/23 Unknown History mcg/dose blistr powdr for inhalation (Advair Diskus) losartan 100 1 tab PO DAILY 08/28/23 08/28/23 Unknown History mg-hydrochlorothiazide 25 mg tablet Exam Exam Date and Time: August 30, 2023 1045 Airway Mallampati Class: III (small mouth) TM Dist: >3cm Neck ROM: Full Loose/Missing/Broken Teeth: No (patient denies any loose or broken teeth) Heart: S1S2 Lungs: CTAB Assessment and Plan Assessment Anesthesia Assessment: Anesthesia Plan Discussed and Chart Reviewed Final Anesthetic Review Family History of Problems with Anesthesia: No History of Problems with Anesthesia: No NPO: Yes ASA Class: II Final Preanesthetic Review: No Changes in Pt Med Stat, Meds/Allgs Chart Reviewed, Consent Obtained/Reviewed and Anes Risks/Benef Reviewed Patient Risk: Low Procedure Risk: Low Anesthetic Plan Anesthetic Plan: MAC: Disposition: Standard PACU
--- NOTE | 2023-08-30 10:55 | PC.NURSE ---
24hr update documented on paper
[2023-08-30 11:39] VITALS: BP 91/47; PULSE 79; RESP 16; TEMP 35.9; O2SAT 97
--- NOTE | 2023-08-30 11:40 | PM.OP ---
Brief Operative Note Date of Service: 08/30/23 Pre-op diagnosis: Screening Post-op diagnosis: other (Diverticulosis) Procedure: Colonoscopy to the cecum Surgeon: Nishant Fair MD Anesthesia: MAC Was an Farm Tractor Mechanic used for this Procedure?: No Estimated blood loss (mL): 0 Pathology: none sent Condition: stable Disposition: PACU
[2023-08-30 11:58] VITALS: BP 119/71; PULSE 79; RESP 18; TEMP 36.1; O2SAT 100
--- NOTE | 2023-08-30 12:45 | OP_ITS ---
DATE OF SERVICE: 08/30/2023 SURGEON: Nishant Fair MD INDICATIONS: The patient presents for evaluation of colorectal cancer screening. Full consent has been obtained from her for this, including risks of bleeding and perforation. PREOPERATIVE DIAGNOSIS: Colorectal cancer screening. POSTOPERATIVE DIAGNOSIS: Colorectal cancer screening, sigmoid diverticulosis, and internal hemorrhoids. PROCEDURE PERFORMED: Colonoscopy to the cecum. ESTIMATED BLOOD LOSS: COMPLICATIONS: ANESTHESIA: Monitored anesthesia care. ASSISTANTS: SPECIMENS: DESCRIPTION OF PROCEDURE: The patient was placed in the left lateral decubitus position. The digital rectal exam revealed external hemorrhoids. The Olympus video pediatric colonoscope was entered into the rectum and advanced easily to the cecum. Once in the cecum, I did identify cecal pouch with appendiceal orifice and a normal-appearing ileocecal valve. The entire cecum and ileocecal valve appeared normal. The scope was then slowly withdrawn assessing all mucosal surfaces carefully. For the most part, preparation was excellent, although there was some small amounts of residual stool, which were easily washed away. I did not visualize any sign of polyps, colitis nor angiodysplasia. There were occasional diverticula in the sigmoid colon. In the rectum, scope was retroflexed visualizing internal hemorrhoids, but no other pathology. The rectal mucosa appeared normal. The scope was straightened and withdrawn from the patient. She tolerated the procedure well and was returned to recovery area in stable condition. IMPRESSION: 1. Mild diverticulosis. 2. Internal hemorrhoids. PLAN: Given the negative colonoscopy, I would recommend a followup colonoscopy in 10 years for further screening. She will otherwise see me on a p.r.n. basis. Nishant Fair MD RMJulien/MODL / [phone]
== END 2023-08-30 12:56 | disposition home or self-care (01) ==
PROVIDERS: PCP Internal Medicine; Visit Provider Internal Medicine
PROC: 0DJD8ZZ Inspection of Lower Intestinal Tract, Via Natural or Artificial Opening Endoscopic (ICD-10-PCS; CPT 45378; principal; 2023-08-30 10:50)
DX: Z12.11 Encounter for screening for malignant neoplasm of colon (principal); K57.30 Diverticulosis of large intestine without perforation or abscess without bleeding; K64.8 Other hemorrhoids; I10 Essential (primary) hypertension; E78.5 Hyperlipidemia, unspecified; J45.909 Unspecified asthma, uncomplicated; Z86.11 Personal history of tuberculosis; E03.9 Hypothyroidism, unspecified; Z79.1 Long term (current) use of non-steroidal anti-inflammatories (NSAID); Z79.899 Other long term (current) drug therapy
CPT/HCPCS: 45378; J2704

== ENCOUNTER 2024-01-17 12:17 | Outpatient (RCR) | payer OTHER, SELFPAY ==
--- NOTE | 2023-11-15 13:54 | MHC.PT.EP ---
[facility] [place] Office [place] Office [place] Office [address] [phone] F: [phone] F: [phone] F: [phone] F: [phone] Physical Therapy Plan of Care Date of Evaluation: 11/15/23 Date of Surgery: n/a Diagnosis: Primary osteoarthritis, right ankle and foot Assessment: Pt is a pleasant 63yo F who presents to PT with left ankle pain for ~1 year. She had xray of left ankle in May which revealed possible avulsion fracture. Pt presents to PT with current impairments in pain, decreased ankle ROM, decreased ankle strength, decreased muscle length, soft tissue restrictions, and impaired gait. She is limited functionally by prolonged sitting, prolonged standing, walking, dancing, and stair navigation. She is an excellent candidate for skilled PT in order to address current impairments to facilitate return to PLOF. She is recommended to be seen 2x/week for 4 weeks and will be reassessed at that time Frequency and Duration: The patient will be seen 2x/week for 4 weeks Short Term Goals: Pt will be I with HEP to promote self management of symptoms Pt will improve left ankle dorsiflexion strength to at least 4+/5 Senior Living Goals: Pt will achieve full ROM and strength all planes of left ankle with minimal to no pain Pt will tolerate standing and walking > 1 hour with minimal to no pain Treatment Plan: Modalities to reduce pain, spasms and effusion. Manual therapy to restore motion and function. Therapeutic exercise to improve strength and flexibility. Neuromuscular re-education for posture and balance. Therapeutic activities to return to functional activities of daily living. Electronically signed by: Katelyn Hull, PT, DPT Please sign and return to therapist. Thank you for your referral.
--- NOTE | 2024-01-18 10:11 | MHC.PT.DC ---
[facility] [place] Office [place] Office [place] Office [address] [phone] F: [phone] F: [phone] F: [phone] F: [phone] Physical Therapy Discharge Report Diagnosis: Primary osteoarthritis, right ankle and foot Date of Surgery: n/a Date of Evaluation: 11/15/23 Date of Discharge: 01/18/24 Treatments to Date: 11 Cancellations to Date: No Shows to Date: Discharge Status: Improved Function Independent with HEP Discharge Summary: Pt has made good progress since SOC. She does continue to have mild residual swelling to her ankle however she has had a decrease in pain and demonstrates improvements in strength noted throughout exercise. She is independent and compliant with HEP. She is being D/C from skilled PT. She has printed copy of HEP and I provided pt with isacc collins to perform HEP Electronically signed by: Katelyn Hull, PT, DPT Please sign and return to therapist. Thank you for your referral.
== END 2024-01-18 10:11 | disposition home or self-care (01) ==
LOC: HO.PT 12:17
PROVIDERS: PCP Internal Medicine; Visit Provider Physician Assistant
DX: M19.071 Primary osteoarthritis, right ankle and foot (principal)
CPT/HCPCS: 97110; 97112; 97116; 97140; 97161; 97530

== ENCOUNTER 2024-02-01 10:22 | Outpatient (REF) | payer OTHER, SELFPAY ==
--- OUTSIDE RECORDS SUMMARY | 2024-02-01 10:25 | XMS_ITS ---
Author Organization [facility] Address [address] [place] [address] Care Team Providers Care Parking Meter Mechanic Name Role Phone Mary Schaffer Primary Care Provider Unavailab Nishant Hugo [phone] REASON FOR VISIT insurance Encounters Encounter Location Date Provider Diagnosis [facility] [address] [place] [address] 06/13/2023 Nishant Fair PLAN OF TREATMENT No Information
--- OUTSIDE RECORDS SUMMARY | 2024-02-01 10:25 | XMS_ITS ---
Author Organization [facility] Address [address] [place] [address] Care Team Providers Care Tunnel Worker Name Role Phone Mary Schaffer Primary Care Provider Nishant Mcmillan Unavailable [phone] ALLERGIES Allergen (clinical drug ingredient) Drug/Non Drug Allergy documented on EMR Reaction Allergy Type Onset Date Status Dust Mites Unknown Allergy Active dust (uncoded) Unknown Allergy Activ e season (uncoded) Unknown Allergy Act dejuan REASON FOR VISIT Patient presents today for a COLON SCREENING MEDICATIONS Medication SIG (Take, Route, Frequency, Duration) Notes Start Date End Date Status Losartan Potassium-HCTZ 100-25 MG Oral for 90 Active Rosuvastatin Calcium 5 MG Oral for 90 Active rifAMPin 300 MG Oral for 30 Ac tive Advair Diskus 250-50 MCG/ACT INHALE 2 PU FFS BY MOUTH TWICE A DAY Inhalation for 60 Active Montelukast Sodium 10 MG Oral for 90 Active Levothyroxine Sodium 75 MCG TAKE 1 TABLE T BY MOUTH EVERY DAY Oral for 60 Active Naproxen 500 MG TAKE 1 TABLET BY MELISSA TH TWICE A DAY Oral for 30 PRN Active Dhwvfhou-Jnwswoccg-NO 1 % INSTILL 4 DROP S IN THE RIGHT EAR TWICE A DAY Otic for 30 Active IMMUNIZATIONS Vaccine Route Administration Date Status Comme nts Influenza Unknown 06/14/2023 Refused SOCIAL HISTORY Tobacco Use: Social History Observation Description Date Details (start date - stop date) Never Smoker NA - NA Sex Assigned At : Social History Observation Description Sex Assigned At Unknown Tobacco Use/Smoking Question Answer Notes Patient is a nonsmoker Alcohol Screen Question Answer Notes Did you have a drink containing alcohol in the p ast year? No Points 0 Interpretation Negative PROBLEMS Problem Type ICD Code Onset Dates Problem Status W/U Status Risk SNOMED Code Notes Problem Colon cancer screening (Z12.11) Active confirmed Colon cancer screening (774332814) Problem Encounter for other preprocedural examination (Z01.818) Active confirmed Pre-procedure evaluation check (312824882) VITAL SIGNS BMI 28.80 kg/m2 06/14/2023 Blood pressure systolic 000 mm Hg 06/14/19 24 Blood pressure diastolic 00 mm Hg 024 Height 4 ft 9 in in 06/14/2023 Temperature 97.8 degrees Fahrenheit 06/14/19 24 Weight 133 lb 2 oz lbs 06/14/2023 Encounters Encounter Location Date Provider Diagnosis [facility] [address] [place] [address] 06/14/2023 Nishant Fair Colon cancer screeni Z12.11 and Encounter for other preprocedural examination Z01.818 ASSESSMENTS Encounter Date Diagnosis Assessment Notes Treatment Notes Treatment Clinical Notes 06/14/2023 Colon cancer screening (ICD-10 - Z12.11) 06/14/2023 Encounter for other preprocedural examination (ICD-10 - Z01.818) PLAN OF TREATMENT Future Test Test Name Order Date COLONOSCOPY 06/14/2023 Next Appt Details Follow Up: prn, Reason: Progress Notes * Examination Category Sub-Category Detail Notes General Examination GENERAL APPEARANCE: pleasant , well nourished, well developed, in no acute distress HEAD: EYES: sclera non-icteric EARS: NOSE: THROAT: NECK/THYROID: no cervical lymphade nopathy, neck supple HEART: S1, S2 normal CHEST: LUNGS: clear to auscultatio n bilaterally ABDOMEN: normal bowel sounds, no guarding or rigidity, no guarding or rigidity, no masses palpable, soft, nontender, nondistended NEUROLOGIC: alert and oriented SKIN: nonjaundiced, no spi astrid angiomata EXTREMITIES: no edema PERIPHERAL PULSES: BACK: BREASTS: MUSCULOSKELETAL: MALE GENITOURINARY: LYMPH NODES: RECTAL EXAM: FEMALE GENITOURINARY: ORAL CAVITY: mucosa moist
--- OUTSIDE RECORDS SUMMARY | 2024-02-01 10:25 | XMS_ITS ---
Author Organization [facility] Address [address] [place] [address] Care Team Providers Care Defensive Line Coach Name Role Phone Mary Schaffer Primary Care Provider Unavailab Nishant Hugo Unavailable [phone] REASON FOR VISIT screening PROBLEMS Problem Type ICD Code Onset Dates Problem Status W/U Status Risk SNOMED Code Notes Problem Diverticulosis of large intestine without perforation or abscess without bleeding (K57.30) Active confirmed Diverticul ar disease of colon (094411180) Encounters Encounter Location Date Provider Diagnosis [facility] [place] [address] [place], [place] [phone] 08/30/2023 Nishant Fair Colon cancer scree nuris Z12.11 ; Diverticulosis of large intestine without perforation or abscess without bleeding K57.30 and Other hemorrhoids K64.8 ASSESSMENTS Encounter Date Diagnosis Assessment Notes Treatment Notes Treatment Clinical Notes 08/30/2023 Colon cancer screening (ICD-10 - Z12.11) 08/30/2023 Diverticulosis of large intestine without perforation or abscess without bleeding (ICD-10 - K57.30) 08/30/2023 Other hemorrhoids (ICD-10 - K64.8) PLAN OF TREATMENT No Information
--- OUTSIDE RECORDS SUMMARY | 2024-02-01 10:26 | XMS_ITS | Patient Health Record ---
Author Organization [facility] Address [address] [place] [address] Care Team Providers Care Medicare Biller Name Role Phone Mary Schaffer Primary Care Provider UnavailNishant Guzmán Unavailable [phone] ALLERGIES Allergen (clinical drug ingredient) Drug/Non Drug Allergy documented on EMR Reaction Allergy Type Onset Date Status Dust Mites Unknown Allergy Active dust (uncoded) Unknown Allergy Activ e season (uncoded) Unknown Allergy Act dejuan REASON FOR REFERRAL No Information MEDICATIONS Medication SIG (Take, Route, Frequency, Duration) Notes Start Date End Date Status Levothyroxine Sodium 75 MCG TAKE 1 TABLE T BY MOUTH EVERY DAY Oral for 60 Active Naproxen 500 MG TAKE 1 TABLET BY MELISSA TH TWICE A DAY Oral for 30 PRN Active Losartan Potassium-HCTZ 100-25 MG Oral for 90 Active Shsgrkfq-Dvlwqchlm-PH 1 % INSTILL 4 DROP S IN THE RIGHT EAR TWICE A DAY Otic for 30 Active Rosuvastatin Calcium 5 MG Oral for 90 Active rifAMPin 300 MG Oral for 30 Ac tive Advair Diskus 250-50 MCG/ACT INHALE 2 PU FFS BY MOUTH TWICE A DAY Inhalation for 60 Active Montelukast Sodium 10 MG Oral for 90 Active IMMUNIZATIONS Vaccine Route Administration Date Status [...] Colon cancer screening (Z12.11) Active confirmed Colon can cer screening (057767998) Problem Encounter for other preprocedural examination (Z01.818) Active confirmed Pre-procedure evaluation check (558103197) Problem Diverticulosis of large intestine without perforation or abscess without bleeding (K57.30) Active confirmed Diverticul ar disease of colon (794417276) VITAL SIGNS Temperature 97.8 degrees Fahrenheit 06/14/2023 Blood pressure diastolic 00 mm Hg 06/14/2023 Height 4 ft 9 in in 06/14/2023 Blood pressure systolic 000 mm Hg 06/14/2023 Weight 133 lb 2 oz lbs 06/14/2023 BMI 28.80 kg/m2 06/14/2023 Encounters Encounter Location Date Provider Diagnosis [facility] [place] [address] [place] [phone] 08/30/2023 Nishant Fair Colon cancer screeni ng Z12.11 ; Diverticulosis of large intestine without perforation or abscess without bleeding K57.30 and Other hemorrhoids K64.8 [facility] [address] [place] [address] 06/14/2023 Nishant Fair Colon cancer screeni ng Z12.11 and Encounter for other preprocedural examination Z01.818 [facility] [address] [place] [address] 05/17/2023 Nishant Fair [facility] [address] [place] [address] 06/13/2023 Nishant Fair ASSESSMENTS Encounter Date Diagnosis Assessment Notes Treatment Notes Treatment Clinical Notes 08/30/2023 Colon cancer screening (ICD-10 - Z12.11) 08/30/2023 Diverticulosis of large intestine without perforation or abscess without bleeding (ICD-10 - K57.30) 06/14/2023 Colon cancer screening (ICD-10 - Z12.11) 06/14/2023 Encounter for other preprocedural examination (ICD-10 - Z01.818) 08/30/2023 Other hemorrhoids (ICD-10 - K64.8) PLAN OF TREATMENT Future Test Test Name Order Date COLONOSCOPY 06/14/2023 Insurance Providers Payer Name Payer Address Payer Phone Subscriber Number Group Number Insured Name Patient Relationship to Insured Coverage Start Date Coverage End Date [facility] [address] [place] [phone] [id number] DOROTHY EASLEY Self - patient is the insured MEDICAL (GENERAL) HISTORY Medical History History ICD Code HTN Hyperlipidemia Asthma TB-finishing Rifampin in 07/2023 Hypothyroidism Denies NM,DM,CVA,renal disease Negative colonoscopy early 50's Surgical History Surgery Date(Month/Year) 4 C-sections Hysterectomy Hemorrhoids Right Ear surgery
[2024-02-01 10:38] LABS: MANUAL DIFF FLAG NO
[2024-02-01 11:13] LABS: Basophils Absolute Auto 0.1 X10*3/uL (0.0-0.2); Basophils Percent Auto 0.7 % (0-2); Eosinophils Absolute Auto 0.3 X10*3/uL (0.0-0.4); Eosinophils Percent Auto 3.2 % (0-4); Hematocrit 38.7 % (37.0-47.0); Hemoglobin 12.7 g/dl (12.0-16.0); Imm Gran Abs Auto 0.09 X10*3/uL (0.00-0.03); Imm Gran Pct Auto 0.9 % (0.0-0.4); Lymphocytes Absolute Auto 3.2 X10*3/uL (1.2-4.9); Lymphocytes Percent Auto 30.2 % (20-40); Mean Corpuscular HGB Conc 32.8 g/dl (31.0-35.0); Mean Corpuscular Hemoglobin 27.1 pg (27.0-33.0); Mean Corpuscular Volume 82.5 fL (80.0-98.0); Mean Platelet Volume 9.5 fL (9.4-12.3); Monocytes Absolute Auto 0.5 X10*3/uL (0.1-1.2); Monocytes Percent Auto 5.1 % (2-11); Neutrophils Absolute Auto 6.3 x10*3/uL (2.0-8.3); Neutrophils Percent Auto 59.9 % (45-73); Platelet Count 354 X10*3/uL (160-400); Red Blood Count 4.69 X10*6/uL (4.20-5.50); Red Cell Distribution Width 13.2 % (11.0-16.0); White Blood Count 10.5 X10*3/uL (4.8-10.8)
[2024-02-01 11:28] LABS: Estimated Average Glucose 137 mg/dL; Hemoglobin A1C 151.9959 umol/L; Hemoglobin A1c % 6.4 % (<6.0); Total Hemoglobin (HGBA1C) 3240.7696 umol/L
[2024-02-01 12:46] LABS: Alanine Aminotransferase 23 U/L (0-31); Albumin Level 4.1 g/dL (3.5-5.0); Alkaline Phosphatase 88 U/L (39-117); Anion Gap 10 (12-20); Aspartate Amino Transferase 22 U/L (5-31); Bilirubin Total 0.4 mg/dL (0.0-1.0); Blood Urea Nitrogen 16 mg/dL (9-16); Calcium 8.9 mg/dL (8.4-10.2); Carbon Dioxide 29 mmol/L (22-29); Chloride 109 mmol/L (96-108); Cholesterol 114 mg/dL (<200); Estimated Glomerular Filt Rate > 60; Ferritin 136 ng/mL (10-250); Glucose Random 110 mg/dL (60-115); HDL Cholesterol 35 mg/dL (>40); LDL Cholesterol Calculated 64 mg/dL (<100); Potassium 3.3 mmol/L (3.3-5.1); Sodium 145 mmol/L (135-145); Thyroid Stimulating Hormone 0.03 uIU/mL (0.32-4.0); Total Protein 7.4 g/dL (6.5-8.0); Triglycerides 77 mg/dL (<150)
== END 2024-02-01 10:23 | disposition home or self-care (01) ==
LOC: HO.LAB 10:22
PROVIDERS: PCP Internal Medicine; Visit Provider Internal Medicine
DX: E03.9 Hypothyroidism, unspecified (principal); I10 Essential (primary) hypertension; J45.909 Unspecified asthma, uncomplicated; L81.1 Chloasma
CPT/HCPCS: 36415; 80053; 80061; 82728; 83036; 84443; 85025

== ENCOUNTER 2024-04-23 11:27 | Outpatient (REF) | payer OTHER, SELFPAY ==
--- OUTSIDE RECORDS SUMMARY | 2024-04-23 14:13 | XMS_ITS ---
Author Organization [facility] Address [address] [place] [address] Care Team Providers Care Materials Manager Name Role Phone Mary Schaffer Primary Care Provider Unavailab Nishant Hugo [phone] REASON FOR VISIT insurance Encounters Encounter Location Date Provider Diagnosis [facility] [address] [place] [address] 06/13/2023 Nishant Fair Plan Of Treatment No Information Progress Notes * HARJEET EASLEYSUZYDOB: 9 (62 yo F)Acc No.[id number]:06/13/2023 Patient:?DOROTHY EASLEY :1960???Age:62 Y???Sex:Female Address:[address] [place] [address], [address] * true * Date:? Generated for Maritza easton/Keeley/eTransmitting on:?04/23/2024 02:13 PM EDT
--- OUTSIDE RECORDS SUMMARY | 2024-04-23 14:13 | XMS_ITS | Patient Health Record ---
Author Organization [facility] Address [address] [place] [address] Care Team Providers Care Aboriginal Home [employer] Liaison Officer Name Role Phone Mary Schaffer Primary Care Provider UnavailNishant Guzmán Unavailable [phone] Allergies Allergen (clinical drug ingredient) Drug/Non Drug Allergy documented on EMR Reaction Allergy Type Onset Date Status Dust Mites Unknown Allergy Active dust (uncoded) Unknown Allergy Activ e season (uncoded) Unknown Allergy Act dejuan Reason For Referral No Information Medications Medication SIG (Take, Route, Frequency, Duration) Notes Start Date End Date Status Levothyroxine Sodium 75 MCG TAKE 1 TABLE T BY MOUTH EVERY DAY Oral for 60 Active Naproxen 500 MG TAKE 1 TABLET BY MELISSA TH TWICE A DAY Oral for 30 PRN Active Losartan Potassium-HCTZ 100-25 MG Oral for 90 Active Sraqhxya-Hieeodlkd-SE 1 % INSTILL 4 DROP S IN THE RIGHT EAR TWICE A DAY Otic for 30 Active Rosuvastatin Calcium 5 MG Oral for 90 Active rifAMPin 300 MG Oral for 30 Ac tive Advair Diskus 250-50 MCG/ACT INHALE 2 PU FFS BY MOUTH TWICE A DAY Inhalation for 60 Active Montelukast Sodium 10 MG Oral for 90 Active Immunizations Vaccine Route Administration Date Status Comme nts Influenza Unknown 06/14/2023 Refused Social History Tobacco Use: Social History Observation Description Date Details (start date - stop date) Never Smoker NA - NA Tobacco Use/Smoking Question Answer Notes Patient is a nonsmoker Alcohol Screen Question Answer Notes Did you have a drink containing alcohol in the p ast year? No Points 0 Interpretation Negative Section Notes: From [facility] since 1983 Problems Problem Type SNOMED Code ICD Code Onset Dates Problem Status W/U Status Risk Notes Problem Colon cancer screening (312694684) Colon cancer screening (Z12.11) Active confirmed Problem Pre-procedure evaluation check (277596720) Encounter for other preprocedural examination (Z01.818) Active confirmed Problem Diverticular disease of colon (345231504) Diverticulosis of large intestine without perforation or abscess without bleeding (K57.30) Active confirmed Vital Signs Temperature 97.8 degrees Fahrenheit 06/14/2023 Blood pressure diastolic 00 mm Hg 06/14/2023 Height 4 ft 9 in in 06/14/2023 Blood pressure systolic 000 mm Hg 06/14/2023 Weight 133 lb 2 oz lbs 06/14/2023 BMI 28.80 kg/m2 06/14/2023 Encounters Encounter Location Date Provider Diagnosis [facility] [place] Out[place] [address] [place] [phone] 08/30/2023 Nishant Fair Colon cancer screeni ng Z12.11 ; Diverticulosis of large intestine without perforation or abscess without bleeding K57.30 and Other hemorrhoids K64.8 [facility] [address] [place] [phone] 06/14/2023 Nishant Fair Colon cancer screeni ng Z12.11 and Encounter for other preprocedural examination Z01.818 [facility] [address] [place] [phone] 05/17/2023 Nishant Fair [facility] [address] [place] [phone] 06/13/2023 Nishant Fair Assessments Encounter Date Diagnosis (ICD Code) Assessment Notes Treatment Notes Treatment Clinical Notes Section Notes 08/30/2023 Colon cancer screening (ICD-10 - Z12.11) 08/30/2023 Diverticulosis of large intestine without perforation or abscess without bleeding (ICD-10 - K57.30) 06/14/2023 Colon cancer screening (ICD-10 - Z12.11) Overall, Po appears quite well. Given her age, good clinical appearance, and her last colonoscopy being over 10 years ago, I did recommend a followup colonoscopy for further screening purposes. We did review the rationale for this regard to colon cancer prevention. Full consent was obtained for this, including risks of bleeding and perforation. The procedure will be done monitored anesthesia care. She was instructed not to use her Naproxen for one week before the procedure. She was comfortable with this plan. Thank you again for allowing me to participate in Po's care. I shall continue to keep you advised of her progress. 06/14/2023 Encounter for other preprocedural examination (ICD-10 - Z01.818) Overall, Po appears quite well. Given her age, good clinical appearance, and her last colonoscopy being over 10 years ago, I did recommend a followup colonoscopy for further screening purposes. We did review the rationale for this regard to colon cancer prevention. Full consent was obtained for this, including risks of bleeding and perforation. The procedure will be done monitored anesthesia care. She was instructed not to use her Naproxen for one week before the procedure. She was comfortable with this plan. Thank you again for allowing me to participate in Po's care. I shall continue to keep you advised of her progress. 08/30/2023 Other hemorrhoids (ICD-10 - K64.8) Plan Of Treatment Future Test Test Name Order Date COLONOSCOPY 06/14/2023 Insurance Providers Payer Name Payer Address Payer Phone Subscriber Number Group Number Insured Name Patient Relationship to Insured Coverage Start Date Coverage End Date [facility] [address] [place] [address] [id number] PO EASLEY Self - patient is the insured Medical (General) History Medical History History ICD Code HTN Hyperlipidemia Asthma TB-finishing Rifampin in 07/2023 Hypothyroidism Denies ID,DM,CVA,renal disease Negative colonoscopy early 50's Surgical History Surgery Date(Month/Year) 4 C-sections Hysterectomy Hemorrhoids Right Ear surgery
--- OUTSIDE RECORDS SUMMARY | 2024-04-23 14:13 | XMS_ITS ---
Author Organization [facility] Address [address] [place] [address] Care Team Providers Care Pad Cutter Name Role Phone Mary Schaffer Primary Care Provider Unavailab Nishant Hugo [phone] REASON FOR VISIT screening Problems Problem Type SNOMED Code ICD Code Onset Dates Problem Status W/U Status Risk Notes Problem Diverticular disease of colon (200642094) Diverticulosis of large intestine without perforation or abscess without bleeding (K57.30) Active confirmed Encounters Encounter Location Date Provider Diagnosis [facility] [place] [address] [place], [place] [phone] 08/30/2023 Nishant Fair Colon cancer scree nuris [...] No Information Progress Notes * DOROTHY EASLEYDOB: (63 yo F)Acc No.[id number]:08/30/2023 COLON WITH MAC Patient:?NANCY EASLEYGARETH Provider:?Nishant Fair MD :1960???Age:63 Y???Sex:Female D ate:08/30/2023 Address:[address] [facility], [facility] Pcp:Mary Schaffer Subjective: * Chief Complaints: * ???1. Screening. * Medical History:? Objective: * Vitals:? Assessment: * Assessment: 1.?Colon cancer screening - Z12.11 (Primary)???2.?Diverticulosis of large intestine without perforation or abscess without bleeding - K57.30???3.?Other hemorrhoids - K64.8??? Plan: * Treatment: * Procedure Codes:?37835 DIAGN OSTIC COLONOSCOPY * * The named appointment provid er may or may not be the originator of this progress note, and it is not deemed complete until electronically signed by the appointment provider. Sign off status: Pending * Provider:?Nishant Fair MD Date:? 024 Generated for Maritza easton/Keeley/Michelitting on:?04/23/2024 02:13 PM EDT
--- OUTSIDE RECORDS SUMMARY | 2024-04-23 14:13 | XMS_ITS ---
Author Organization [facility] Address [address] [place] [phone] Care Team Providers Care Foreign Exchange Clerk Name Role Phone Mary Schaffer Primary Care Provider Nishant Mcmillan Unavailable [phone] Allergies Allergen (clinical drug ingredient) Drug/Non Drug Allergy documented on EMR Reaction Allergy Type Onset Date Status Dust Mites Unknown Allergy Active dust (uncoded) Unknown Allergy Activ e season (uncoded) Unknown Allergy Act dejuan REASON FOR VISIT Patient presents today for a COLON SCREENING Medications Medication SIG (Take, Route, Frequency, Duration) [...] A DAY Oral for 30 PRN Active Camqhrqk-Iwwjzgxrm-OL 1 % INSTILL 4 DROP S IN THE RIGHT EAR TWICE A DAY Otic for 30 Active Immunizations Vaccine Route Administration Date Status [...] Status Risk Notes Problem Colon cancer screening (036321116) Colon cancer screening (Z12.11) Active confirmed Problem Pre-procedure evaluation check (580586300) Encounter for other preprocedural examination (Z01.818) Active confirmed Vital Signs Temperature 97.8 degrees Fahrenheit 06/14/19 24 Blood pressure systolic 000 mm Hg 06/14/19 24 Blood pressure diastolic 00 mm Hg 024 Height 4 ft 9 in in 06/14/2023 Weight 133 lb 2 oz lbs 06/14/2023 BMI 28.80 kg/m2 06/14/2023 Encounters Encounter Location Date Provider Diagnosis [facility] [address] [place] [address] 06/14/2023 Nishant Fair Colon cancer screeni ng Z12.11 and Encounter for other preprocedural examination Z01.818 Assessments Encounter Date Diagnosis (ICD Code) Assessment Notes Treatment Notes Treatment Clinical Notes Section Notes 06/14/2023 Colon cancer screening (ICD-10 - [...] again for allowing me to participate in Aloks care. I shall continue to keep you [...] again for allowing me to participate in Aloks care. I shall continue to keep you advised of her progress. Plan Of Treatment Future Test Test Name Order Date COLONOSCOPY 06/14/2023 Next Appt Details Follow Up: prn, Reason: Progress Notes * PO EASLEYDOB: (63 yo F)Acc No.[id number]:06/14/2023 Progress Notes Patient:?PO EASLEY Provider:?Nishant Fair MD :1960???Age:62 Y???Sex:Female D ate:06/14/2023 Address:[address] [place], [place] [id number] Pcp:Mary Schaffer Subjective: * Chief Complaints: * ???Patient presents today fo r a COLON SCREENING * HPI: ???incontinence:? I saw Po in the office today for evaluation of colorectal cancer screening. ?As you know, Po is a 62-year-old female who presently feels very well. She describes having had a negative screening colonoscopy over 10 years ago. She reports that she presently feels well with a good appetite. She denies any significant heartburn or dysphagia. Her bowel movements have been regular and without any signs of bleeding. She denies abdominal pain, jaundice, no weight loss she denies any known family history of colon cancer.. * ROS:?General/Constitutional:?Change in appetite?denies.?Chills?denies.?Fatigue?denies.?Ophthalmologic:?Comments?all negative.?ENT:?Comments?all negative.?Respiratory:?hemoptysis?denies.?Cough?denies.?Cardiovascular:?Chest pain?denies.?Orthopnea?denies.?Gastrointestinal:?Comments?See HPI for details.?Genitourinary:?Hematuria?denies.?Dysuria?denies.?Musculoskeletal:?Painful joints?denies.?Weakness?denies.?Skin:?Itching?denies.?Rash?denies.?Neurologic:?Headache?denies.?Seizures?denies.?Psychiatric:?Comments?all negative.? * Medical History:? * Surgical History:? 4 C-secti ons Hysterectomy Hemorrhoids Right Ear surgery * Hospitalization/Major Diagno stic Procedure:?No Hospitalization History. * Family History:?Father: dece ased, diagnosed with Heart disease.?Mother: .? No family history of colon cancer or liver cancer. * Social History:?Tobacco Use:?Tobacco Use/Smoking?Patient is a?nonsmoker.?Drugs/Alcohol:?Alcohol Screen?Did you have a drink containing alcohol in the past year??No,?Points?0,?Interpretation?Negative.?Miscellaneous:?Marital status: . ???From [facility] since 1983. * Medications:?TakingNaproxen 500 MG Tablet TAKE 1 TABLET BY MOUTH TWICE A DAY Oral , Notes: PRNLevothyroxine Sodium 75 MCG Tablet TAKE 1 TABLET BY MOUTH EVERY DAY Oral Sahzshge-Wrxxgvuaz-XP 1 % Solution INSTILL 4 DROPS IN THE RIGHT EAR TWICE A DAY Otic Losartan Potassium-HCTZ 100-25 MG Tablet Oral rifAMPin 300 MG Capsule Oral Rosuvastatin Calcium 5 MG Tablet Oral Montelukast Sodium 10 MG Tablet Oral Advair Diskus 250-50 MCG/ACT Aerosol Powder Breath Activated INHALE 2 PUFFS BY MOUTH TWICE A DAY Inhalation Medication List reviewed and reconciled with the patientTaking Naproxen 500 MG Tablet TAKE 1 TABLET BY MOUTH TWICE A DAY Oral , Notes: PRNTaking Levothyroxine Sodium 75 MCG Tablet TAKE 1 TABLET BY MOUTH EVERY DAY Oral Taking [place]o-Wonmxtast-HO 1 % Solution INSTILL 4 DROPS IN THE RIGHT EAR TWICE A DAY Otic Taking Losartan Potassium-HCTZ 100-25 MG Tablet Oral Taking rifAMPin 300 MG Capsule Oral Taking Rosuvastatin Calcium 5 MG Tablet Oral Taking Montelukast Sodium 10 MG Tablet Oral Taking Advair Diskus 250-50 MCG/ACT Aerosol Powder Breath Activated INHALE 2 PUFFS BY MOUTH TWICE A DAY Inhalation Medication List reviewed and reconciled with the patient * Allergies:?seasonDust Mitesd ustyes[Allergies Verified] Objective: * Vitals:?Wt: 133 lb 2 oz, Ht: 4 ft 9 in, BMI:28.80 Index, BP: 000/00 mm Hg, Temp: 97.8. * Examination: ???General Examination: ?GENERAL APPEARANCE:?pleasant, well nourished, well developed, in no acute distress.?EYES:?sclera non-icteric.?ORAL CAVITY:?mucosa moist.?NECK/THYROID:?no cervical lymphadenopathy, neck supple.?SKIN:?nonjaundiced, no spider angiomata.?HEART:?S1, S2 normal.?LUNGS:?clear to auscultation bilaterally.?ABDOMEN:?normal bowel sounds, no guarding or rigidity, no guarding or rigidity, no masses palpable, soft, nontender, nondistended.?EXTREMITIES:?no edema.?NEUROLOGIC:?alert and oriented.? Assessment: * Assessment: 1.?Encounter for other prepr ocedural examination - Z01.818 (Primary)?2.?Colon cancer screening - Z12.11? Overall, Po appears qu ite well. Given her age, good clinical appearance, [...] to keep you advised of her progress. Plan: * Treatment: * Immunizations:? Influenza (Not administered - Refused: Patient decision) * Procedure Codes:?3017F COLOR ECTAL CA SCREEN DOC [id number] TOBACCO NON-YCVNN6060 BP SCR NOT PRFRM REC REASON NOS * Preventive Medicine:? ??Counseling:?Care goal follow-up plan:?Above Normal BMI Follow-up?Giving encouragement to exercise,?BMI management provided?Yes.? * Follow Up:?prn * * Sign off status: Completed true * Provider:?Nishant Fair MD Date:? 024 Generated for Maritza easton/Keeley/Tellosmitting on:?04/23/2024 02:13 PM EDT History and Physical Notes * HPI (History of Present Illness) Category Sub-Category Detail Notes Category Not es incontinence I saw Po in the office today for evaluation of colorectal cancer screening. As you know, Po is a 62-year-old female who presently feels very well. She describes having had a negative screening colonoscopy over 10 years ago. She reports that she presently feels well with a good appetite. She denies any significant heartburn or dysphagia. Her bowel movements have been regular and without any signs of bleeding. She denies abdominal pain, jaundice, no weight loss she denies any known family history of colon cancer.. Examination Category Sub-Category Detail Notes Category Not es General Examination GENERAL APPEARANCE: pleasant , well [...]
== END 2024-04-23 11:28 | disposition home or self-care (01) ==
LOC: HO.LAB 11:27
PROVIDERS: PCP Internal Medicine; Visit Provider Internal Medicine
DX: Z00.00 Encounter for general adult medical examination without abnormal findings (principal); E03.8 Other specified hypothyroidism; E78.00 Pure hypercholesterolemia, unspecified; M94.0 Chondrocostal junction syndrome [Tietze]
CPT/HCPCS: 36415; 84443

== ENCOUNTER 2024-06-27 15:00 | Outpatient (RCR) | payer OTHER, SELFPAY | END 2024-06-27 16:02 | disposition home or self-care (01) | LOC: HO.OT 15:00 | PROVIDERS: PCP Internal Medicine; Visit Provider Internal Medicine | DX: M25.542 Pain in joints of left hand (principal) | CPT/HCPCS: 97033; 97110; 97140; 97165 ==

== ENCOUNTER 2024-09-16 09:19 | Outpatient (AMB) | payer OTHER, SELFPAY ==
[2024-09-16 09:51] VITALS: BMI 28.6
--- NOTE | 2024-09-16 09:51 | MHC.OFFVIS ---
Vital Signs 09/16/24 09:51 Height 4 ft 9 in Weight 132 lb BMI 28.6 Intake Visit Reasons: New prob-Lt hand pain Intake Note: Po is a 64 year old right hand dominant female who presents today for a new problem visit complaining of left hand pain. Patient reports ongoing left thumb pain for about 15 years with episodes of swelling and difficulty opening cans and bottles. She says the area is very sensitive to the touch. She states applying pressure at the wrist alleviates the pain. She occasionally wears a brace at night with some relief. She tried occupational therapy at [facility] but it did not help. She had a basal joint injection long time ago but it only helped for about 2 years. Patient denies any injuries or surgeries to her left hand. Commercial Crabber Required: Yes Commercial Crabber Language: Yudelka Commercial Crabber Services: Commercial Crabber Offered & Declined Allergies No Known Allergies Allergy (Verified 09/16/24 10:01) HPI HPI New prob-Lt hand pain: Details: Po is a 64 year old right hand dominant female who presents today for a new problem visit complaining of left hand pain. Patient reports ongoing left thumb pain for about 15 years with episodes of swelling and difficulty opening cans and bottles. She says the area is very sensitive to the touch. She states applying pressure at the wrist alleviates the pain. She occasionally wears a brace at night with some relief. She tried occupational therapy at [facility] but it did not help. She had a basal joint injection long time ago but it only helped for about 2 years. Patient denies any injuries or surgeries to her left hand. [facility] Medical History (Updated 09/16/24 @ 16:40 by SUSI Daniel) Personal history of tuberculosis Thyroid disease Asthma Hyperlipidemia HTN (hypertension) Surgical History History of ear surgery Hx of hemorrhoidectomy Hx of hysterectomy History of section H/O colonoscopy Social History Patient Tobacco Use Status: Never used Tobacco Review of Systems Const All systems reviewed & are unremarkable except as noted in HPI and below Physical Exam Vital Signs: BMI result Body Mass Index 28.6 Extrem Other: Patient is alert, oriented, and in no acute distress. Neuro: Normal sensation of the tips of all digits of the left hand at this time Vascular: Cap refill brisk Pain: Minimal tenderness to palpation of the left radial styloid Significant tenderness to palpate around left basal joint, CMC grind very painful No pain with Breann test on the left ROM: Patient is able to make a closed fist and extend all digits of the left hand fully Skin: No lacerations or abrasions. General: No ecchymosis, erythema, or evidence of infection. Psych: Appears grossly normal Affect normal Attitude cooperative Results Reviewed Results Reviewed: X-rays obtained in the office today and independently reviewed by me, Anthony Bruner PA-C, demonstrate moderate to severe basal joint arthritis of the left thumb. Assessment & Plan Assessment & Plan (1) Arthritis of carpometacarpal (CMC) joint of left thumb: Code(s): M18.12 - Unilateral primary osteoarthritis of first carpometacarpal joint, left hand Category: Medical Plan 1. Basal joint arthritis of the left thumb Patient is educated about this condition Patient is educated about the treatment options available Patient would like to proceed with steroid injection at this time The risks and benefits of a steroid injection including but not limited to risk of damage to blood vessels, nerve, tendon, infection, skin bleaching, persistent or worsening pain, and failure to improve symptoms were discussed with the patient and they wish to proceed with the steroid injection. Once consent was obtained the skin over the dorsum of the left basal joint was sterilely prepped. Unfortunately, I was not able to advance the needle into the joint, as these joint spaces very narrow on x-ray and I was unable to advance the needle into the joint itself, routinely getting bone with all attempted in the positioning. Due to this. I feel it is best for the patient to proceed with an injection under x-ray guidance with Dr. Wynne. Patient will follow-up in 3-4 weeks for this injection. Patient is amenable to this plan Orders: Orders XR hand LT min 3V Today M79.642 - Pain in left hand XR hand LT min 3V Today M79.642 - Pain in left hand Coding Level of Care Code New Pt Level 3 (67346) Diagnoses Arthritis of carpometacarpal (CMC) joint of left thumb M18.12
== END 2024-09-16 10:55 | disposition home or self-care (01) ==
LOC: HO.HOS 09:20
PROVIDERS: PCP Internal Medicine
DX: M18.12 Unilateral primary osteoarthritis of first carpometacarpal joint, left hand (principal)
CPT/HCPCS: 99203

== ENCOUNTER 2024-09-16 09:29 | Outpatient (REF) | payer OTHER, SELFPAY ==
--- NOTE | ~2024-09-16 | XR_ITS ---
EXAMINATION: XR HAND 3 OR MORE VIEWS LEFT HISTORY: M79.642 - Pain in left hand COMPARISON: There are no prior studies available for comparison. FINDINGS: Three views of the left hand are submitted. Osseous mineralization is normal. There is no fracture or dislocation. There is moderate osteoarthritis of the 1st carpometacarpal joint, with joint space narrowing and osteophyte formation. The soft tissues are unremarkable. XR/XR hand LT min 3V IMPRESSION: Moderate osteoarthritis of the 1st carpometacarpal joint. Electronically signed by: Nishant Ortiz MD 09/16/2024 10:06 AM EDT
--- OUTSIDE RECORDS SUMMARY | 2024-09-16 09:59 | XMS_ITS | Patient Health Record ---
Author Organization [facility] Address [address] [place] [address] Care Team Providers Care Supervisor Joiners Name Role Phone Mary Schaffer Primary Care Provider UnavailNishant Guzmán Unavailable [phone] Allergies Allergen (clinical drug ingredient) Drug/Non Drug [...] Potassium-HCTZ 100-25 MG Oral for 90 Active Sdhjqnbo-Gwfihyhpw-WL 1 % INSTILL 4 DROP S IN [...] Status Risk Notes Problem Colon cancer screening (779222843) Colon cancer screening (Z12.11) Active confirmed Problem Pre-procedure evaluation check (622111662) Encounter for other preprocedural examination (Z01.818) Active confirmed Problem Diverticulosis o f large intestine without perforation or abscess without bleeding (K57.30) Active confirmed Plan Of Treatment Future Test Test Name Order Date COLONOSCOPY 06/14/2023 Insurance Providers Payer Name Payer Address Payer Phone Subscriber Number Group Number Insured Name Patient Relationship to Insured Coverage Start Date Coverage End Date [facility] [address] [place] [address] [id number] DOROTHY EASLEY Self - patient is the insured Medical (General) History Medical History History ICD Code HTN Hyperlipidemia Asthma TB-finishing Rifampin in 07/2023 Hypothyroidism Denies NE,DM,CVA,renal disease Negative colonoscopy early 50's Surgical History Surgery Date(Month/Year) 4 C-sections Hysterectomy Hemorrhoids Right Ear surgery
== END 2024-09-16 09:30 | disposition home or self-care (01) ==
LOC: HO.XRAY 09:29
DX: M18.12 Unilateral primary osteoarthritis of first carpometacarpal joint, left hand (principal)
CPT/HCPCS: 73130

== ENCOUNTER → 2024-09-16 09:33 | Outpatient (BNV) | payer OTHER, SELFPAY | PROVIDERS: Visit Provider Radiology Diagnostic Radiology | DX: M18.12 Unilateral primary osteoarthritis of first carpometacarpal joint, left hand (principal) | CPT/HCPCS: 73130 ==

== ENCOUNTER 2024-10-01 13:45 | Outpatient (REF) | payer OTHER, SELFPAY ==
--- NOTE | ~2024-10-01 | XR_ITS ---
EXAMINATION: XR FOOT, LEFT CLINICAL INFORMATION: R/O Fracture 1st toe COMPARISON: None available. TECHNIQUE: AP, lateral, and oblique views of the left foot. FINDINGS: There are small marginal ossified involving the first metatarsophalangeal joint. There is subtle oblique lucency involving the lateral base of the distal phalanx of the great toe appears to extend beyond the bony margin into the soft tissues. It is seen only on the oblique view. Moderate enthesophytes are noted in the distal Achilles tendon and at the plantar fascial attachment onto calcaneus. Small marginal spurs are present in the dorsal midfoot. XR/XR foot LT min 3V IMPRESSION: Subtle lucency in across the lateral base of the distal phalanx of the great toe appears to extend into the soft tissues and is therefore unlikely to represent a fracture. Correlate for focal symptoms in this region. Minimal evidence of osteoarthritis involving first MTP joint. Nonspecific enthesophytes in the region of calcaneus. Electronically signed by: Jr Medina MD 10/01/2024 02:15 PM EDT
--- OUTSIDE RECORDS SUMMARY | 2024-10-01 15:02 | XMS_ITS | Patient Health Record ---
Author Organization [facility] Address [address] [place] [address] Care Team Providers Care Cnc Operator Name Role Phone Mary Schaffer Primary Care Provider UnavailNishant Guzmán Unavailable [phone] Allergies Allergen (clinical drug ingredient) Drug/Non Drug [...] Potassium-HCTZ 100-25 MG Oral for 90 Active Iuqkdzdp-Zbnctlbdw-RF 1 % INSTILL 4 DROP S IN [...] Status Risk Notes Problem Colon cancer screening (334767968) Colon cancer screening (Z12.11) Active confirmed Problem Pre-procedure evaluation check (152508011) Encounter for other preprocedural examination (Z01.818) Active confirmed Problem Diverticulosis o f large intestine without perforation or abscess without bleeding (K57.30) Active confirmed Plan Of Treatment Future Test Test Name Order Date COLONOSCOPY 06/14/2023 Insurance Providers Payer Name Payer Address Payer Phone Subscriber Number Group Number Insured Name Patient Relationship to Insured Coverage Start Date Coverage End Date [facility] [address] [place] [address] [id number] DOROTHY EASLEY Self - patient is the insured Medical (General) History Medical History History ICD Code HTN Hyperlipidemia Asthma TB-finishing Rifampin in 07/2023 Hypothyroidism Denies NM,DM,CVA,renal disease Negative colonoscopy early 50's Surgical History Surgery Date(Month/Year) 4 C-sections Hysterectomy Hemorrhoids Right Ear surgery
== END 2024-10-01 13:46 | disposition home or self-care (01) ==
LOC: HO.XRAY 13:45
PROVIDERS: PCP Internal Medicine; Visit Provider Internal Medicine
DX: S90 Superficial injury of ankle, foot and toes (principal); M25.572 Pain in left ankle and joints of left foot
CPT/HCPCS: 73630

== ENCOUNTER → 2024-10-01 14:00 | Outpatient (BNV) | payer OTHER, SELFPAY | PROVIDERS: PCP Internal Medicine; Visit Provider Radiology Diagnostic Radiology | DX: M19.072 Primary osteoarthritis, left ankle and foot (principal) | CPT/HCPCS: 73630 ==

== ENCOUNTER 2024-10-09 10:48 | Outpatient (AMB) | payer OTHER, SELFPAY ==
--- OUTSIDE RECORDS SUMMARY | 2023-08-30 06:50 | XMS_ITS ---
Author Organization [facility] Address [address] [place] [address] Care Team Providers Care Handle Rounder Operator Name Role Phone Mary Schaffer Primary Care Provider UnavailNishant Guzmán [phone] REASON FOR VISIT screening Problems Problem Type SNOMED Code ICD Code Onset Dates Problem Status W/U Status Risk Notes Problem Diverticular disease of colon (075963893) Diverticulosis of large intestine without perforation or abscess without bleeding (K57.30) Active confirmed Encounters Encounter Location Date Provider Diagnosis [facility] Out[place] [address], [place] [id number] 08/30/2023 Nishant Fair Colon cancer scree nuris [...] Notes * DOROTHY EASLEYDOB: (64 yo F)Acc No.[id number]:08/30/2023 COLON WITH MAC Patient: DOROTHY HARRIS Provider: Kaylie Fair MD :1960 A ge:63 Y S ex:Female Date:08/30/2023 Address:[address] [place] [address] [facility] Pcp:Mary Schaffer Subjective: * Chief Complaints: * 1 . Screening. * Medical History: Objective: * Vitals: Assessment: * Assessment: 1. C olon cancer screening - Z12.11 (Primary) 2 . D iverticulosis of large intestine without perforation or abscess without bleeding - K57.30 3 . O ther hemorrhoids - K64.8 Plan: * Treatment: * Procedure Codes: 4 5378 DIAGNOSTIC COLONOSCOPY * * The named appointment provid er may or may not be the originator of this progress note, and it is not deemed complete until electronically signed by the appointment provider. Sign off status: Pending * Provider: Kaylie Fair MD Date: 0 08/30/2023 Generated for Maritza easton/Keeley/Michelitting on: 0 10/09/2024 11:40 AM EDT
--- NOTE | 2024-10-09 11:04 | A.OFFVIS_ITS ---
Vital Signs 10/09/24 11:05 Height 4 ft 9 in Weight 132 lb BMI 28.6 Intake Visit Reasons: INJ- Left Basal injection under XR Intake Note: Po 64 yr old female presents today for her left hand basla joint injection. Last seen with Viridiana Cruz who attempted and failed basal joint injection. Allergies No Known Allergies Allergy (Verified 10/09/24 11:14) HPI HPI INJ- Left Basal injection under XR: Details: Po is a 64 year old right hand dominant woman who presents for her left basal joint arthritis. She complains of pain at the base of her thumb, worse with pinching & gripping activities. She says she has had pain for ~15 years intermittently, and had some relief from a steroid injection in the past. A steroid injection was attempted by SUSI Cruz on 09/16/24 but he was unable to successfully find the joint space. She would like to discuss an injection under X-ray today. [facility] Medical History (Updated 09/16/24 @ 16:40 by SUSI Daniel) Personal history of tuberculosis Thyroid disease Asthma Hyperlipidemia HTN (hypertension) Surgical History History of ear surgery Hx of hemorrhoidectomy Hx of hysterectomy History of section H/O colonoscopy Social History Patient Tobacco Use Status: Never used Tobacco Review of Systems Const All systems reviewed & are unremarkable except as noted in HPI and below Physical Exam Vital Signs: BMI result Body Mass Index 28.6 Const General: cooperative, healthy appearing and no acute distress Orientation/consciousness: patient oriented x3 HEENT Head: Yes normocephalic and Yes atraumatic Eyes EOM: EOMs intact bilaterally Resp Effort & Inspection: normal respiratory effort and able to speak in complete sentences Cardio Jugular venous distension: no JVD Skin General skin exam: turgor normal Rashes: no rashes Neuro General: patient oriented x3 Extrem Other: Evaluation of Left Upper Extremity: The patient is alert, oriented, and in no acute distress Neuro: Median, Ulnar, Radial nerves motor and sensory intact and sensation is normal to the tips of all digits Vascular: Cap refill brisk ROM: She can make a fist and extend all her digits No locking or catching Skin: No lacerations or abrasions. General: No Ecchymosis. No Erythema or evidence of infection. Most tender over the basal joint Pos shoulder sign Pos CMC grind No tenderness over the 1st dorsal compartment No tenderness over the MCP joint or a1 wagner Negative Breann test bilaterally Radiographs: 3 views of the left hand from 09/16/24 were reviewed by me today in clinic. They show basal joint arthritis with joint space narrowing, subchondral sclerosis, and osteophyte formation. Psych Appearance: grossly normal Affect: normal affect Attitude: cooperative Office Procedures AMB Fracture Care Details: No fracture, injection Fracture Billing Code: Fracture Billing Code Assessment & Plan Assessment & Plan (1) Arthritis of carpometacarpal (CMC) joint of left thumb: Code(s): M18.12 - Unilateral primary osteoarthritis of first carpometacarpal joint, left hand Category: Medical Plan Assessment & plan: 1. Left basal joint arthritis, S/P injection Date of injection: 10/09/24 I educated her about this condition I discussed operative and non-operative treatment options The patient would like to proceed with an injection I discussed activity modification, they should limit or avoid any heavy or repetitive pinching or gripping activities She was fitted for a comfort cool brace to wear with daily activity She should work on ROM exercises, and avoid any gripping or strengthening activities I discussed the use of assistive devices for daily activity Injection #1: The risks and benefits of a steroid injection including but not limited to risk of damage to blood vessels, nerve, tendon, infection, skin bleaching, persistent or worsening pain, and failure to improve symptoms were discussed with the patient and they wish to proceed with the steroid injection. Once consent was obtained the skin over the dorsum of the Left basal joint was sterilely prepped. The basal joint was noted to be narrow at time of injection, but I did feel the needle pass into the joint. The joint was then injected with a combination of 1 mL of (40 mg/ml} Depo-Medrol and 0.5% plain Marcaine. The patient appears to have tolerated the procedure well and with no complications. She had good early relief before leaving clinic today. She knows that they may not have another steroid injection into this joint for least 4 months. Scribed for Spring Wynne MD by Bryn Wang medical anthropology director, on 10/09/24 at 11:10 AM, EST. Coding Level of Care Code Est Pt Level 3 (23316) Diagnoses Arthritis of carpometacarpal (CMC) joint of left thumb M18.12 CPT Codes Fracture Care - Fracture Billing Code: Fracture Billing Code ([id number])
[2024-10-09 11:05] VITALS: BMI 28.6
--- OUTSIDE RECORDS SUMMARY | 2024-10-09 11:40 | XMS_ITS | Patient Health Record ---
Author Organization [facility] Address [address] [place] [address] Care Team Providers Care Client Services Assistant Name Role Phone Mary Schaffer Primary Care Provider UnavailNishant Guzmán Unavailable [phone] Allergies Allergen (clinical drug ingredient) Drug/Non Drug [...] Potassium-HCTZ 100-25 MG Oral for 90 Active Deqnurlz-Ekkgjixhr-LQ 1 % INSTILL 4 DROP S IN [...] Status Risk Notes Problem Colon cancer screening (777357425) Colon cancer screening (Z12.11) Active confirmed Problem Pre-procedure evaluation check (057920299) Encounter for other preprocedural examination (Z01.818) Active confirmed Problem Diverticular disease of colon (209437892) Diverticulosis of large intestine without perforation or abscess without bleeding (K57.30) Active confirmed Plan Of Treatment Future Test Test Name Order Date COLONOSCOPY 06/14/2023 Insurance Providers Payer Name Payer Address Payer Phone Subscriber Number Group Number Insured Name Patient Relationship to Insured Coverage Start Date Coverage End Date [facility] [address] [place] [phone] [id number] DOROTHY EASLEY Self - patient is the insured Medical (General) History Medical History History ICD Code HTN Hyperlipidemia Asthma TB-finishing Rifampin in 07/2023 Hypothyroidism Denies VA,DM,CVA,renal disease Negative colonoscopy early 50's Surgical History Surgery Date(Month/Year) 4 C-sections Hysterectomy Hemorrhoids Right Ear surgery
== END 2024-10-09 11:27 | disposition home or self-care (01) ==
LOC: HO.HOS 10:49
PROVIDERS: PCP Internal Medicine; Visit Provider Orthopaedic Surgery
DX: M18.12 Unilateral primary osteoarthritis of first carpometacarpal joint, left hand (principal)
CPT/HCPCS: 20600; 99213

== ENCOUNTER → 2024-10-09 10:48 | Outpatient (BNVA) | payer OTHER, SELFPAY | PROVIDERS: PCP Internal Medicine; Visit Provider Orthopaedic Surgery | DX: M18.12 Unilateral primary osteoarthritis of first carpometacarpal joint, left hand (principal) | CPT/HCPCS: 20600; 99212; J1100; J2003 ==

== ENCOUNTER 2024-11-13 11:51 | Outpatient (REF) | payer OTHER, SELFPAY ==
[2024-11-13 13:24] LABS: Hemoglobin A1C 152.5434 umol/L
[2024-11-13 13:51] LABS: Alanine Aminotransferase 23 U/L (0-31); Albumin Level 4.5 g/dL (3.5-5.0); Alkaline Phosphatase 85 U/L (39-117); Anion Gap 10 (12-20); Aspartate Amino Transferase 25 U/L (5-31); Blood Urea Nitrogen 13 mg/dL (9-16); Calcium 9.6 mg/dL (8.4-10.2); Carbon Dioxide 26 mmol/L (22-29); Chloride 110 mmol/L (96-108); Estimated Glomerular Filt Rate > 60; Potassium 3.7 mmol/L (3.3-5.1); Sodium 142 mmol/L (135-145); Total Protein 7.1 g/dL (6.5-8.0)
[2024-11-13 14:10] LABS: Thyroid Stimulating Hormone 0.93 uIU/mL (0.32-4.0)
== END 2024-11-13 11:52 | disposition home or self-care (01) ==
LOC: HO.LAB 11:51
PROVIDERS: PCP Internal Medicine; Visit Provider Internal Medicine
DX: I10 Essential (primary) hypertension (principal); J45.909 Unspecified asthma, uncomplicated; R73.01 Impaired fasting glucose; E03.9 Hypothyroidism, unspecified
CPT/HCPCS: 36415; 80053; 83036; 84443

== ENCOUNTER 2025-02-11 10:20 | Outpatient (REF) | payer OTHER, SELFPAY ==
--- OUTSIDE RECORDS SUMMARY | 2023-08-30 05:50 | XMS_ITS ---
Author Organization [facility] Address [address] [place] [address] Care Team Providers Care Pearl Fisherman Name Role Phone Mary Schaffer Primary Care Provider UnavailNishant Guzmán [phone] REASON FOR VISIT screening Problems Problem Type SNOMED Code ICD Code Onset Dates Problem Status W/U Status Risk Notes Problem Diverticular disease of colon (844626611) Diverticulosis of large intestine without perforation or abscess without bleeding (K57.30) Active confirmed Encounters Encounter Location Date Provider Diagnosis [facility] Outpatient [address] [place], [place] [id number] 08/30/2023 Nishant Fair Colon cancer scree nuris Z12.11 ; Diverticulosis of large intestine without perforation or abscess without bleeding K57.30 and Other hemorrhoids K64.8 Assessments Encounter Date Diagnosis (ICD Code) Assessment Notes Treatment Notes Treatment Clinical Notes Section Notes 08/30/2023 Colon cancer screening (ICD-10 - Z12.11) 08/30/2023 Diverticulosis of large intestine without perforation or abscess without bleeding (ICD-10 - K57.30) 08/30/2023 Other hemorrhoids (ICD-10 - K64.8) Plan Of Treatment No Information Progress Notes * DOROTHY EASLEYDOB: (64 yo F)Acc No.[id number]:08/30/2023 COLON WITH MAC Patient: DOROTHY HARIRS Provider: Kaylie Fair MD :1960 A ge:63 Y S ex:Female Date:08/30/2023 Address[address] [facility] Pcp:Mary Schaffer Subjective: * Chief Complaints: * S creening Assessment: * Assessment: 1. C olon cancer screening - Z12.11 (Primary) 2 . D iverticulosis of large intestine without perforation or abscess without bleeding - K57.30 3 . O ther hemorrhoids - K64.8 Plan: * Procedure Codes: 4 5378 DIAGNOSTIC COLONOSCOPY Billing Information: * Procedure Codes: 86104 DIAGNOSTIC COLONOSCOPY. * The named appointment provid er may or may not be the originator of this progress note, and it is not deemed complete until electronically signed by the appointment provider. Sign off status: Pending * Provider: Kaylie Fair MD Date: 0 08/30/2023 Generated for Maritza easton/Keeley/Michelitting on: 01:43 PM EST
[2025-02-11 13:04] LABS: Alanine Aminotransferase 18 U/L (0-31); Albumin Level 4.4 g/dL (3.5-5.0); Alkaline Phosphatase 93 U/L (39-117); Anion Gap 12 (12-20); Aspartate Amino Transferase 24 U/L (5-31); Blood Urea Nitrogen 16 mg/dL (9-16); Calcium 9.7 mg/dL (8.4-10.2); Carbon Dioxide 26 mmol/L (22-29); Chloride 107 mmol/L (96-108); Cholesterol 127 mg/dL (<200); Estimated Glomerular Filt Rate > 60; HDL Cholesterol 37 mg/dL (>40); Potassium 3.6 mmol/L (3.3-5.1); Sodium 141 mmol/L (135-145); Total Protein 7.3 g/dL (6.5-8.0); Triglycerides 107 mg/dL (<150)
[2025-02-11 13:06] LABS: Thyroid Stimulating Hormone 1.76 uIU/mL (0.32-4.0)
--- OUTSIDE RECORDS SUMMARY | 2025-02-11 13:43 | XMS_ITS | Patient Health Record ---
Author Organization [facility] Address [address] [place] [id number] Care Team Providers Care Guest Relations Manager Name Role Phone Mary Schaffer Primary Care Provider UnavailNishant Guzmán Unavailable [phone] Allergies Allergen (clinical drug ingredient) Drug/Non Drug Allergy documented on EMR Reaction Allergy Type Onset Date Status Dust dust (uncoded) Unknown Allergy Activ e season (uncoded) Unknown Allergy Act dejuan Dust Mites Unknown Allergy Active Reason For Referral No Information Medications Medication SIG (Take, Route, Frequency, Duration) Notes Start Date End Date Status Levothyroxine Sodium 75 MCG Tablet TAKE 1 TABLET BY MOUTH EVERY DAY Oral; Duration: 60 Active Naproxen 500 MG Tablet TAKE 1 TABLET BY MOUTH TWICE A DAY Oral; Duration: 30 PRN Active Losartan Potassium-HCTZ 100-25 MG Tablet Oral; Duration: 90 Activ e Uvrfzssm-Uvntbufqb-DR 1 % Solution INSTILL 4 DROPS IN THE RIGHT EAR TWICE A DAY Otic; Duration: 30 Active Rosuvastatin Calcium 5 MG Tablet Oral; Duration: 90 Active rifAMPin 300 MG Capsule Oral; Duration: 30 Active Advair Diskus 250-50 MCG/ACT Aerosol Powder Breath Activated INHALE 2 PUFFS BY MOUTH TWICE A DAY Inhalation; Duration: 60 Active Montelukast Sodium 10 MG Tablet Oral; Duration: 90 Active Immunizations Vaccine Route Administration Date Status Comme nts Influenza Unknown 06/14/2023 Refused Social History Tobacco Use: Social History Observation Description Date Details (start date - stop date) Never Smoker NA - NA Social History Drugs/Alcohol: Social Info Question Answer Notes Alcohol Screen Did you have a drink containing alcohol in the past year? No Points 0 Interpretation Negative Tobacco Use: Social Info Question Answer Notes Tobacco Use/Smoking Patient is a nonsmoker Additional Details Category Social Info Options Details Miscellaneous: Marital status: Section Notes: From [place] since 1983 Problems Problem Type SNOMED Code ICD Code Onset Dates Problem Status W/U Status Risk Notes Problem Colon cancer screening (647616233) Colon cancer screening (Z12.11) Active confirmed Problem Pre-procedure evaluation check (255972735) Encounter for other preprocedural examination (Z01.818) Active confirmed Problem Diverticular disease of colon (087808322) Diverticulosis of large intestine without perforation or abscess without bleeding (K57.30) Active confirmed Plan Of Treatment Future Test Test Name Order Date COLONOSCOPY 06/14/2023 Insurance Providers Payer Name Payer Address Payer Phone Subscriber Number Group Number Insured Name Patient Relationship to Insured Coverage Start Date Coverage End Date [facility] [address] [facility] [place] [phone] [id number] DOROTHY EASLEY Self - patient is the insured Medical (General) History Medical History History ICD Code HTN Hyperlipidemia Asthma TB-finishing Rifampin in 07/2023 Hypothyroidism Denies VA,DM,CVA,renal disease Negative colonoscopy early 50's Surgical History Surgery Date(Month/Year) 4 C-sections Hysterectomy Hemorrhoids Right Ear surgery
== END 2025-02-11 10:21 | disposition home or self-care (01) ==
LOC: HO.LAB 10:20
PROVIDERS: PCP Internal Medicine; Visit Provider Internal Medicine
DX: I10 Essential (primary) hypertension (principal); E03.8 Other specified hypothyroidism; E78.00 Pure hypercholesterolemia, unspecified; R73.01 Impaired fasting glucose
CPT/HCPCS: 36415; 80053; 80061; 83036; 84443